=== PATIENT | female | born 1995 | race Caucasian/White ===

== ENCOUNTER 2016-04-12 00:09 | Emergency (ER) | payer SELFPAY ==
[~2016-04-12 00:09] MED LIST: CEPH500 PO; PRENCAP10 PO; UNIS25TA2 PO; ZOFR4TAB PO; [UNRECOGNIZED DRUG - OTHER] PO
[2016-04-12 01:22] LABS: BACTERIA, URINE OCC /hpf; BLOOD, URINE NEG (NEG); COMMENT (UR) CULTURE INDICATED; CULTURE IF INDICATED CULTURE INDICATED; GLUCOSE,URINE NEG (NEG); KETONE, URINE NEG (NEG); MUCUS URINE FEW /lpf (OCC); SQUAMOUS EPITHELIAL CELL URINE 1 /hpf (0-5); URINE COLOR YELLOW (YELLW/STRAW)
[2016-04-12 01:23] LABS: NITRITE,URINE POS (NEG)
[2016-04-12] MEDS ORDERED: PROMETHAZINE INJ 25 MG/ML VIAL IM ONE (01:30)
[2016-04-12] MEDS ORDERED: MEPERIDINE HCL 25 MG/ML VIAL IM ONE (01:30)
[2016-04-12] MEDS ORDERED: MACR100C2 PO (01:37)
--- NOTE | 2016-04-12 01:38 | PD ---
HPI Chief Complaint Abdominal pain Date Seen: Apr 12, 2016 Travel History International Travel<30 Days: No Contact w/Intl Traveler<30Days: No Known Affected Area: No History of Present Illness HPI Patient is a 19 week intrauterine who presents complaining of lower abdominal pain began earlier in the day midday & steadily worsened. Denies bleeding or ruptured membranes. Patient has no care to date. Para: 0 : 4 Allergies-Medications (Allergen,Severity, Reaction): Coded Allergies: No Known Allergies (Unverified , 01/12/16) Home Meds Active Scripts Pyridoxine HCl (B-)25 Mg Loz1 Tab PO Q6HR PRN (NAUSEA) #14 Prov:Deonna Rodriguez MD 01/12/16 Doxylamine Succinate (Sleep) (Unisom)25 Mg Tab0.5 Tab PO ONCE PRN (NAUSEA) #10 Prov:Deonna Rodriguez MD 01/12/16 Ondansetron Hcl (Zofran)4 Mg Tab4 Mg PO Q6HR PRN (NAUSEA) #10 TAB Prov:Deonna Rodriguez MD 01/12/16 Vit W/ Ferrous Fumara ( Multi +Dha)+ Cap1 Cap PO DAILY 30 Days Prov:Deonna Rodriguez MD 01/12/16 Cephalexin Monohydrate (Keflex 500 mg Cap)500 Mg [id number] Mg PO BID #14 CAP Prov:Deonna Rodriguez MD 01/12/16 Review of Systems Gastrointestinal: Abdominal Pain Physical Exam Narrative GENERAL: Well-nourished, well-developed patient. SKIN: Warm and dry. HEAD: Normocephalic and atraumatic. EYES: No scleral icterus. No injection or drainage. ENT: No nasal drainage noted. Mucous membranes pink. Airway patent. NECK: Supple, trachea midline. No JVD. CARDIOVASCULAR: Regular rate and rhythm without murmurs, gallops, or rubs. RESPIRATORY: Breath sounds equal bilaterally. No accessory muscle use. BREASTS: Bilateral exam showed no masses , no retractions, no nipple discharge. ABDOMEN/GI: Abdomen soft, non-tender, bowel sounds present, no rebound, no guarding Gravid to [19-] weeks size Fundal Height: [-at umbilicus] GENITOURINARY: External Genitalia: intact and normal in appearance BUS glands: [-] Cervix: [Closed-] Dilatation: [-0] Effacement: [0-] Station: [-3] Presentation: [-] Membranes: [intact ] Uterine Contractions: [-] FHT's: Category: [-] Baseline: [134-] Reactive: [-] Variability: [-] Decels: [-] EXTREMITIES: No cyanosis or edema. BACK: Nontender without obvious deformity. No CVA tenderness. NEUROLOGICAL: Awake and alert. Motor and sensory grossly within normal limits. Five out of 5 muscle strength in all muscle groups. Normal speech. Data Data Orders Vital Signs (Adult) .ON ADMISSION (04/12/16 00:52) ^ Labor Status (04/12/16 00:52) Urinalysis - C+S If Indicated (04/12/16 00:52) Meperidine Inj (Demerol Inj) (04/12/16 01:30) Promethazine Inj (Phenergan Inj) (04/12/16 01:30) Urine Culture (04/12/16 00:40) Labs Laboratory Tests Test 04/12/16 00:40 Urine Color YELLOW Urine Turbidity HAZY Urine pH 7.0 Urine Specific [place] 1.018 Urine Protein NEG Urine Glucose (UA) NEG Urine Ketones NEG Urine Occult Blood NEG Urine Nitrite POS Urine Bilirubin NEG Urine Urobilinogen LESS THAN 2.0 Urine Leukocyte Esterase SMALL Urine WBC 19 Urine Squamous Epithelial 1 Cells Urine Bacteria OCC Urine Mucus FEW Microscopic Urinalysis Comment CULTURE INDICATED Date/Time Procedure Status Source Growth 04/12/16 00:40 Urine Culture Received Urine Clean Catch Pending [facility] Interpretation(s) Patient's 19 week intrauterine presents with lower abdominal pain today. Denies bleeding or rupture the membranes. She has no care here. Urinalysis positive for UTI with positive nitrites and white cells plan of oral Macrobid 100 twice a day for 7 days. Also probably has some component of round ligament pain associated as well. She was given IM shot for pain Demerol Phenergan. And she is advised to use Tylenol liberally at home or increase her fluids and a heating pad on low across the abdomen also is given information on beginning her care here. Plan Plan the patient to get oral antibiotics for UTI Tylenol for abdominal pain bedrest increase oral fluids and return for any bleeding or leakage of fluid. Diagnosis Diagnosis: Primary Impression: Abdominal pain during in second trimester Additional Impression: UTI (urinary tract infection) during Disposition: 01 DISCHARGE HOME Condition: Stable Scripts Nitrofurantoin Monohydrate Macrocrystals (Macrobid)100 Mg [id number] Mg PO BID #14 CAP Ref 0 Prov:Sam Rodriguez II, MD 04/12/16 Patient Instructions: General Instructions, Labor (ED), Movement (ED), Abdominal Pain in (ED) Departure Forms: Tests/Procedures Sam Rodriguez II, MD Apr 12, 2016 01:37
[2016-04-27] MEDS ORDERED: PREN1CHW7 PO (14:39)
[2016-05-22] MEDS ORDERED: PREN1CHW7 PO (16:14)
[2016-05-22] MEDS ORDERED: ZANT150T2 PO ×2 (16:14→16:15)
[2016-05-24] MEDS ORDERED: FERR325T72 PO (10:55)
[2016-08-23] MEDS ORDERED: ZANT150T2 PO (14:38)
[2016-09-27] MEDS ORDERED: TRI-TAB PO (11:08)
== END 2016-04-12 02:04 | disposition home or self-care (01) ==
LOC: HOBED 00:09
DX: O23.42 Unspecified infection of urinary tract in pregnancy, second trimester (principal); B96.20 Unspecified Escherichia coli [E. coli] as the cause of diseases classified elsewhere; Z3A.19 19 weeks gestation of pregnancy
CPT/HCPCS: 81001; 87077; 87086; 87186; 96372; 99284; J2550

== ENCOUNTER → 2016-04-27 | Outpatient (CLI) | payer SELFPAY ==
[~2016-04-27] MED LIST changes: +ACET1TAB86 PO; +FERR325T72 PO; +Ibuprofen PO; +MACR100C2 PO; +PREN1CHW7 PO; +TRI-TAB PO; +ZANT150T2 PO; +ZOFR8TAB PO
== END ==
LOC: HPND 15:41
PROVIDERS: ATTEND Nurse Practitioner Women's Health
DX: O09.30 Supervision of pregnancy with insufficient antenatal care, unspecified trimester (principal); Z3A.22 22 weeks gestation of pregnancy
CPT/HCPCS: 76805

== ENCOUNTER 2016-05-09 18:55 | Emergency (ER) | payer SELFPAY ==
[~2016-05-09 18:55] MED LIST changes: -ACET1TAB86 PO; -CEPH500 PO; -FERR325T72 PO; -Ibuprofen PO; -MACR100C2 PO; -PRENCAP10 PO; -TRI-TAB PO; -UNIS25TA2 PO; -ZANT150T2 PO; -ZOFR4TAB PO; -ZOFR8TAB PO; -[UNRECOGNIZED DRUG - OTHER] PO
[2016-05-09 19:16] VITALS: BP 116/76; PULSE 75
--- NOTE | 2016-05-09 20:03 | PD ---
HPI Chief Complaint diarrhea and vomiting Date Seen: May 09, 2016 Time Seen: 19:00 Travel History International Travel<30 Days: No Contact w/Intl Traveler<30Days: No Known Affected Area: No History of Present Illness HPI 20 yo female at 24w 4 days by DIANN c/o 3 days of diarrhea, mostly at night. Approx 3 episodes per day. Some nausea at night particularly after eating dinner. Fever 101 on first day of symptoms. Denies abdominal pain. Some right pain on lateral side. Denies contractions. Para: 0 : 3 Last Menstrual Period: May 09, 2016 Miscarriage: 2 History Past Medical History Narrative Medical Denies Obstetric History Obstetric History SAB x 2 Past Surgical History Surgical History: No Previous Surgery Family History Family History: Negative Social History Alcohol Use: No Tobacco Use: No Substance Abuse: No Allergies-Medications (Allergen,Severity, Reaction): Coded Allergies: No Known Allergies (Unverified , 04/27/16) Home Meds Active Scripts Vit W/ Ferric Phospha (Vitafol Gummies 3.33-0.333-34.8 mg)1 Chw Chw1 Tab PO DAILY #90 BOTTLE Ref 3 Prov:Veronika Matt 04/27/16 W/O Vit A W/ Fe Carbo (Prenate Mini 18-0.6-0.4-350 mg)1 Cap Cap Sample #2 Prov:Veronika Matt 04/27/16 Review of Systems Except as stated in HPI: all other systems reviewed are Neg General / Constitutional: Fever Gastrointestinal: Nausea, Diarrhea Physical Exam Narrative GENERAL: Well-nourished, well-developed patient. SKIN: Warm and dry. HEAD: Normocephalic and atraumatic. EYES: No scleral icterus. No injection or drainage. ENT: No nasal drainage noted. Mucous membranes pink. Airway patent. NECK: Supple, trachea midline. No JVD. CARDIOVASCULAR: Regular rate and rhythm without murmurs, gallops, or rubs. RESPIRATORY: Breath sounds equal bilaterally. No accessory muscle use. BREASTS: Bilateral exam showed no masses , no retractions, no nipple discharge. ABDOMEN/GI: Abdomen soft, non-tender, bowel sounds present, no rebound, no guarding Gravid to [-] 24 weeks size Fundal Height: [-] GENITOURINARY: External Genitalia: intact and normal in appearance BUS glands: [-] Cervix: [-] Dilatation: [-] Effacement: [-] Station: [-] Presentation: [-] Membranes: [intact or ruptured] Uterine Contractions: [-] no contractions seen on toco FHT's: Category: [-] 1 Baseline: [-] 130 Reactive: [-] moderate Variability: [-] moderate Decels: [-] absent EXTREMITIES: No cyanosis or edema. BACK: Nontender without obvious deformity. No CVA tenderness. NEUROLOGICAL: Awake and alert. Motor and sensory grossly within normal limits. Five out of 5 muscle strength in all muscle groups. Normal speech. Data Data Orders Vital Signs (Adult) .ON ADMISSION (05/09/16 19:36) ^ Labor Status (05/09/16 19:36) Urinalysis - C+S If Indicated (05/09/16 19:36) Cbc No Diff, Includes Plts (05/09/16 19:36) Comprehensive Metabolic Panel (05/09/16 19:36) Labs Laboratory Tests Test 05/09/16 05/09/16 19:30 19:40 Urine Color YELLOW Urine Turbidity CLEAR Urine pH 6.0 Urine Specific [place] 1.011 Urine Protein NEG mg/dL Urine Glucose (UA) NEG mg/dL Urine Ketones NEG mg/dL Urine Occult Blood NEG Urine Nitrite NEG Urine Bilirubin NEG Urine Urobilinogen LESS THAN 2.0 MG/DL Urine Leukocyte Esterase NEG Urine WBC 3 /hpf Urine Squamous Epithelial 1 /hpf Cells Urine Bacteria OCC /hpf Urine Mucus FEW /lpf Microscopic Urinalysis Comment CULT NOT INDICATED White Blood Count 10.3 TH/MM3 Red Blood Count 3.30 MIL/MM3 Hemoglobin 9.8 GM/DL Hematocrit 28.5 % Mean Corpuscular Volume 86.4 FL Mean Corpuscular Hemoglobin 29.6 PG Mean Corpuscular Hemoglobin 34.2 % Concent Red Cell Distribution Width 13.5 % Platelet Count 222 TH/MM3 Mean Platelet Volume 9.5 FL Sodium Level 139 MEQ/L Potassium Level 4.1 MEQ/L Chloride Level 106 MEQ/L Carbon Dioxide Level 24.2 MEQ/L Anion Gap 9 MEQ/L Blood Urea Nitrogen 5 MG/DL Creatinine 0.63 MG/DL Estimat Glomerular Filtration 120 ML/MIN Rate Random Glucose 69 MG/DL Calcium Level 8.3 MG/DL Total Bilirubin 0.3 MG/DL Aspartate Amino Transf 9 U/L (AST/SGOT) Alanine Aminotransferase 13 U/L (ALT/SGPT) Alkaline Phosphatase 44 U/L Total Protein 6.5 GM/DL Albumin 2.8 GM/DL MDM Plan Discussed increased fluid intake Normal CBC/BMP/UA - No signs of bacterial infection. Most likely mild viral gastroenteritis Over the counter iron supplements daily Diagnosis Diagnosis: Primary Impression: 24 weeks gestation of Additional Impressions: Viral gastroenteritis Anemia affecting Disposition: 01 DISCHARGE HOME Meghan Mak MD May 09, 2016 20:03
[2016-05-09 20:57] LABS: HEMATOCRIT 28.5 % (35.0-46.0); MEAN CELL VOLUME 86.4 FL (80.0-100.0); MEAN CORPUSCULAR HEMOGLOBIN 29.6 PG (27.0-34.0); MEAN CORPUSCULAR HGB CONC 34.2 % (32.0-36.0); PLATELET COUNT 222 TH/MM3 (150-450); RED CELL DISTRIBUTION WIDTH 13.5 % (11.6-17.2); REVIEW FLAG FINAL; WHITE BLOOD COUNT 10.3 TH/MM3 (4.0-11.0)
[2016-05-09 21:02] LABS: BACTERIA, URINE OCC /hpf; BLOOD, URINE NEG (NEG); COMMENT (UR) CULT NOT INDICATED; CULTURE IF INDICATED CULT NOT INDICATED; GLUCOSE,URINE NEG (NEG); KETONE, URINE NEG (NEG); MUCUS URINE FEW /lpf (OCC); NITRITE,URINE NEG (NEG); SQUAMOUS EPITHELIAL CELL URINE 1 /hpf (0-5); URINE COLOR YELLOW (YELLW/STRAW)
[2016-05-09 21:13] LABS: ALKALINE PHOSPHATASE 44 U/L (45-117); ALT (GPT) 13 U/L (9-42); ANION GAP 9 MEQ/L (5-15); AST (GOT) 9 U/L (16-38); BICARBONATE 24.2 MEQ/L (21.0-32.0); BLOOD UREA NITROGEN 5 MG/DL (7-18); CHLORIDE 106 MEQ/L (98-107); GLOMERULAR FILTRATION RATE 120 ML/MIN (>89); POTASSIUM 4.1 MEQ/L (3.5-5.1); SODIUM (NA) 139 MEQ/L (136-145); TOTAL BILIRUBIN ADULT 0.3 MG/DL (0.2-1.0)
[2016-05-22] MEDS ORDERED: ZANT150T2 PO ×2 (16:14→16:15)
[2016-05-22] MEDS ORDERED: PREN1CHW7 PO (16:14)
[2016-05-24] MEDS ORDERED: FERR325T72 PO (10:55)
[2016-08-23] MEDS ORDERED: ZANT150T2 PO (14:38)
[2016-09-27] MEDS ORDERED: TRI-TAB PO (11:08)
== END 2016-05-09 21:29 | disposition home or self-care (01) ==
LOC: HOBED 18:55
DX: O99.612 Diseases of the digestive system complicating pregnancy, second trimester (principal); O98.512 Other viral diseases complicating pregnancy, second trimester; A08.4 Viral intestinal infection, unspecified; O99.012 Anemia complicating pregnancy, second trimester; Z3A.24 24 weeks gestation of pregnancy
CPT/HCPCS: 36415; 80053; 81001; 85027

== ENCOUNTER 2016-05-19 15:25 | Emergency (ER) | payer MEDICAID ==
[2016-05-19] MEDS ORDERED: SODIUM CHLOR 0.9% 1000 ML INJ 1,000 ML IV SCH (15:50)
[2016-05-19 16:00] VITALS: TEMP 98.7
[2016-05-19] MEDS ORDERED: ONDANSETRON HCL 4 MG/2 ML VIAL IV ONE (16:00)
--- NOTE | 2016-05-19 16:01 | PD ---
HPI Chief Complaint Nausea and vomiting Date Seen: May 19, 2016 Time Seen: 15:53 (Luis Leon MD R2) Travel History International Travel<30 Days: No Contact w/Intl Traveler<30Days: No Known Affected Area: No (Luis Leon MD R2) History of Present Illness HPI 20-year-old at 26.0 presents to OB triage for the third time in 1 month for nausea and vomiting of . Patient has had intermittent episodes where she has nausea and vomiting. She started developing nausea and vomiting last night which progressed to this morning. She states this morning she had toast around 8:30 AM and has been nonbloody vomiting every hour since that time. She does not think the toast caused her to be vomiting. She also has been having diarrhea 3 today. Nonbloody. She also has a mild nonproductive cough and right ear drainage for one day. When the patient was here on 05/09/16 , CBC, urinalysis, and BMP were reassuring. CBC did reveal anemia which she has been treated with iron since that time. She did complain of fevers last night and now she complains of chills. No vaginal bleeding. No loss of fluid. She feels the baby move as normal. Para: 0 : 3 (Luis Leon MD R2) History Past Medical History Narrative Medical Anemia-on iron Medical History: Denies Significant Hx (Luis Leon MD R2) Obstetric History Obstetric History 2 spontaneous abortions prior to 3 months. (Luis Leon MD R2) Past Surgical History Surgical History: No Previous Surgery (Luis Leon MD R2) Family History Family History: Negative (Luis Leon MD R2) Social History Alcohol Use: No Tobacco Use: No Substance Abuse: No (Luis Leon MD R2) Allergies-Medications (Allergen,Severity, Reaction): Coded Allergies: No Known Allergies (Unverified , 05/19/16) Home Meds Active Scripts Ondansetron (Zofran)8 Mg Tab8 Mg PO TID #90 TAB Ref 0 Prov:Luis Leon MD 05/19/16 Ranitidine (Zantac)150 Mg [id number] Mg PO BID #30 TAB Ref 0 Prov:Luis Leon MD 05/19/16 Vit W/ Ferric Phospha (Vitafol Gummies 3.33-0.333-34.8 mg)1 Chw Chw1 Tab PO DAILY #90 BOTTLE Ref 3 Prov:VernellVeronika Destini NASEEM 04/27/16 W/O Vit A W/ Fe Carbo (Prenate Mini 18-0.6-0.4-350 mg)1 Cap Cap Sample #2 Prov:VernellVeronika B. CASE SUPERVISOR 04/27/16 Review of Systems General / Constitutional: Fever, Chills HENT: Headaches (better with Tylenol) (Luis Leon MD R2) Physical Exam Narrative GENERAL: Well-nourished, well-developed patient. SKIN: Warm and dry. HEAD: Normocephalic and atraumatic. EYES: No scleral icterus. No injection or drainage. ENT: No nasal drainage noted. Mucous membranes pink. Airway patent. NECK: Supple, trachea midline. No JVD. CARDIOVASCULAR: Regular rate and rhythm without murmurs, gallops, or rubs. RESPIRATORY: Breath sounds equal bilaterally. No accessory muscle use. ABDOMEN/GI: Abdomen soft, non-tender, bowel sounds present, no rebound, no guarding FHT's: Category: [-] Baseline: [-] Reactive: [-] Variability: [-] Decels: [-] EXTREMITIES: No cyanosis or edema. BACK: Nontender without obvious deformity. No CVA tenderness. NEUROLOGICAL: Awake and alert. Motor and sensory grossly within normal limits. Five out of 5 muscle strength in all muscle groups. Normal speech. (Luis Leon MD R2) Data Data Vital Signs Reviewed: Yes Orders Vital Signs (Adult) .ON ADMISSION (05/19/16 15:50) ^ Labor Status (05/19/16 15:50) (Luis Leon MD R2) MDM Medical Record Reviewed: Yes Interpretation(s) 20-year-old presents with nausea and vomiting [address] the patient on the monitor 2. Nausea and vomiting-Suspect gastroenteritis versus nausea and vomiting of -Place IV, provide fluid and Zofran. -Previous labs reviewed on 05/09 and are reassuring. Narrative Course / MDM After 2 L of fluid and Zofran, the patient feels back to her normal self. Her nausea has improved after Zofran. She has not had any vomiting. We'll plan to discharge the patient home with ericntac and zofran. Encourage follow-up with her OB provider within the next week. (Luis Leon MD R2) Attending Attestation Patient seen and evaluated with resident under direct supervision, agree with assessment and plan. (Jason Solorzano MD) Diagnosis Diagnosis: Primary Impression: Nausea and vomiting during Disposition: 01 DISCHARGE HOME Condition: Stable Scripts Ondansetron (Zofran)8 Mg Tab8 Mg PO TID #90 TAB Ref 0 Prov:Luis Leon MD R2 05/19/16 Ranitidine (Zantac)150 Mg [id number] Mg PO BID #30 TAB Ref 0 Prov:Luis Leon MD R2 05/19/16 Luis Leon MD R2 May 19, 2016 16:01 Jason Solorzano MD May 19, 2016 17:45
[2016-05-19 16:27] LABS: BLOOD, URINE NEG (NEG); COMMENT (UR) CULT NOT INDICATED; CULTURE IF INDICATED CULT NOT INDICATED; GLUCOSE,URINE NEG (NEG); KETONE, URINE NEG (NEG); NITRITE,URINE NEG (NEG); SQUAMOUS EPITHELIAL CELL URINE 1 /hpf (0-5); URINE COLOR LIGHT-YELLOW (YELLW/STRAW)
[2016-05-19 16:51] VITALS: BP 120/81; PULSE 71
[2016-05-19 16:53] VITALS: RESP 18
[2016-05-19] MEDS ORDERED: LACTATED RINGER'S 1000 ML INJ 1,000 ML IV ONE (17:15)
[2016-05-19] MEDS ORDERED: ZANT150T2 PO (17:23)
[2016-05-19] MEDS ORDERED: ZOFR8TAB PO (17:23)
[2016-05-19 18:00] VITALS: RESP 18
[2016-05-19 18:11] VITALS: BP 115/75; PULSE 74
[2016-05-22] MEDS ORDERED: ZANT150T2 PO ×2 (16:14→16:15)
[2016-05-22] MEDS ORDERED: PREN1CHW7 PO (16:14)
[2016-05-24] MEDS ORDERED: FERR325T72 PO (10:55)
[2016-08-23] MEDS ORDERED: ZANT150T2 PO (14:38)
[2016-09-27] MEDS ORDERED: TRI-TAB PO (11:08)
== END 2016-05-19 18:19 | disposition home or self-care (01) ==
LOC: HOBED 15:25
DX: O26.892 Other specified pregnancy related conditions, second trimester (principal); R11.2 Nausea with vomiting, unspecified; R19.7 Diarrhea, unspecified; H92.11 Otorrhea, right ear; R05 Cough; D64.9 Anemia, unspecified
CPT/HCPCS: 81001; 99284; J2405; J7030; J7120

== ENCOUNTER → 2016-05-23 | Outpatient (CLI) | payer MEDICAID, OTHER ==
[~2016-05-23] MED LIST changes: +ACET1TAB86 PO; +FERR325T72 PO; +Ibuprofen PO; +TRI-TAB PO; +ZANT150T2 PO; +ZOFR8TAB PO
== END ==
LOC: HPND 13:15
PROVIDERS: ATTEND Obstetrics & Gynecology
DX: O35.1XX0 Maternal care for (suspected) chromosomal abnormality in fetus, not applicable or unspecified (principal); O09.32 Supervision of pregnancy with insufficient antenatal care, second trimester
CPT/HCPCS: 76811

== ENCOUNTER → 2016-06-19 | Outpatient (CLI) | payer MEDICAID | LOC: HPND 11:00 | PROVIDERS: ATTEND Obstetrics & Gynecology | DX: O35.1XX0 Maternal care for (suspected) chromosomal abnormality in fetus, not applicable or unspecified (principal); Z3A.00 Weeks of gestation of pregnancy not specified | CPT/HCPCS: 76816 ==

== ENCOUNTER 2016-06-30 21:59 | Emergency (ER) | payer MEDICAID ==
[~2016-06-30 21:59] MED LIST changes: -ACET1TAB86 PO; -Ibuprofen PO; -TRI-TAB PO; -ZANT150T2 PO; -ZOFR8TAB PO
[2016-06-30] MEDS ORDERED: LACTATED RINGER'S 1000 ML INJ 1,000 ML IV ONE (22:45)
--- NOTE | 2016-06-30 22:54 | PD ---
HPI Chief Complaint Contractions for 1 hour Date Seen: Jun 30, 2016 Time Seen: 22:51 Travel History International Travel<30 Days: No Contact w/Intl Traveler<30Days: No Known Affected Area: No History of Present Illness HPI 20-year-old white female who is at 32 weeks gestation comes in complaining of intermittent abdominal pain with contractions for the past 1 hour that began at work. Patient did not feel well at work and took a break thereafter started having contractions. Denies vaginal bleeding or discharge. Good movement is noted Para: 0 : 1 History Past Medical History Narrative Medical Anemia this Medical History: Denies Significant Hx Obstetric History Obstetric History SAB 2 Past Surgical History Surgical History: No Previous Surgery Family History Family History: Negative Social History Alcohol Use: No Tobacco Use: No Substance Abuse: No Allergies-Medications (Allergen,Severity, Reaction): Coded Allergies: No Known Allergies (Unverified , 06/19/16) Home Meds Active Scripts Ferrous Gluconate 325 Mg [id number] Mg PO DAILY #30 TAB Ref 3 Prov:Cherri Gilmore CNMP 05/24/16 Vit W/ Ferric Phospha (Vitafol Gummies 3.33-0.333-34.8 mg)1 Chw Chw1 Tab PO DAILY #90 BOTTLE Ref 3 Prov:Veronika Matt 05/22/16 W/O Vit A W/ Fe Carbo (Prenate Mini 18-0.6-0.4-350 mg)1 Cap Cap Sample #2 Prov:Veronika Matt 04/27/16 Review of Systems Except as stated in HPI: all other systems reviewed are Neg Physical Exam Narrative GENERAL: Well-nourished, well-developed patient. SKIN: Warm and dry. HEAD: Normocephalic and atraumatic. EYES: No scleral icterus. No injection or drainage. ENT: No nasal drainage noted. Mucous membranes pink. Airway patent. NECK: Supple, trachea midline. No JVD. CARDIOVASCULAR: Regular rate and rhythm without murmurs, gallops, or rubs. RESPIRATORY: Breath sounds equal bilaterally. No accessory muscle use. BREASTS: Bilateral exam showed no masses , no retractions, no nipple discharge. ABDOMEN/GI: Abdomen soft, non-tender, bowel sounds present, no rebound, no guarding Gravid to [-] weeks size Fundal Height: [32-] GENITOURINARY: External Genitalia: intact and normal in appearance BUS glands: [Normal-] Cervix: [Mid position-] Dilatation: [-Closed] Effacement: [-50] Station: [-3] Presentation: [-Vertex] Membranes: [intact ] Uterine Contractions: [-Irregular every 3-5 minutes] FHT's: Category: [1-] Baseline: 140 Reactive: Moderate Variability: Moderate Decels: Absent EXTREMITIES: No cyanosis or edema. BACK: Nontender without obvious deformity. No CVA tenderness. NEUROLOGICAL: Awake and alert. Motor and sensory grossly within normal limits. Five out of 5 muscle strength in all muscle groups. Normal speech. Data Data Orders Vital Signs (Adult) .ON ADMISSION (06/30/16 22:43) ^ Labor Status (06/30/16 22:43) Urinalysis - C+S If Indicated (06/30/16 22:43) ^ Hydration (06/30/16 22:43) Lactated Ringer's 1000 Ml Inj (Lr 1000 M (06/30/16 22:45) Labs Laboratory Tests Test 06/30/16 22:55 Urine Color YELLOW Urine Turbidity CLEAR Urine pH 7.0 Urine Specific [place] 1.007 Urine Protein NEG mg/dL Urine Glucose (UA) NEG mg/dL Urine Ketones NEG mg/dL Urine Occult Blood NEG Urine Nitrite NEG Urine Bilirubin NEG Urine Urobilinogen LESS THAN 2.0 MG/DL Urine Leukocyte Esterase NEG Urine RBC LESS THAN 1 /hpf Urine WBC 2 /hpf Urine Squamous Epithelial 1 /hpf Cells Urine Mucus FEW /lpf Microscopic Urinalysis Comment CULT NOT INDICATED Fibronectin NEGATIVE MDM Plan 32 weeks, negative FFN Contractions much improved with IV hydration Discharge home with decreased activity this weekend with pelvic rest Follow up next week CFW Diagnosis Diagnosis: Primary Impression: 32 weeks gestation of Additional Impression: False labor before 37 completed weeks of gestation Disposition: 01 DISCHARGE HOME Meghan Mak MD Jun 30, 2016 22:54
[2016-06-30 23:23] LABS: BLOOD, URINE NEG (NEG); COMMENT (UR) CULT NOT INDICATED; CULTURE IF INDICATED CULT NOT INDICATED; GLUCOSE,URINE NEG (NEG); KETONE, URINE NEG (NEG); MUCUS URINE FEW /lpf (OCC); NITRITE,URINE NEG (NEG); SQUAMOUS EPITHELIAL CELL URINE 1 /hpf (0-5); URINE COLOR YELLOW (YELLW/STRAW)
[2016-08-23] MEDS ORDERED: ZANT150T2 PO (14:38)
[2016-09-27] MEDS ORDERED: TRI-TAB PO (11:08)
== END 2016-07-01 00:10 | disposition home or self-care (01) ==
LOC: HOBED 21:59
DX: D64.9 Anemia, unspecified (principal); O47.03 False labor before 37 completed weeks of gestation, third trimester; Z3A.32 32 weeks gestation of pregnancy
CPT/HCPCS: 81001; 82731; 96360; 99284; J7120

== ENCOUNTER 2016-07-18 05:08 | Emergency (ER) | payer MEDICAID ==
--- NOTE | 2016-07-18 05:59 | PD ---
HPI Chief Complaint Lower abdominal pain Date Seen: Jul 18, 2016 Travel History International Travel<30 Days: No Contact w/Intl Traveler<30Days: No Known Affected Area: No History of Present Illness HPI at 34w 4d, DIANN 08-25-16, presents with c/o lower abdominal pain. Reports pain as cramping and intermittent. Reports pain beginning a few hours prior to arrival. Denies LOF/VB. Reports good FM. Denies problems this . Denies urinary problems. Para: 0 : 3 History Past Medical History Medical History: Denies Significant Hx Past Surgical History Surgical History: No Previous Surgery Family History Family History: Negative Social History Alcohol Use: No Tobacco Use: No Substance Abuse: No Allergies-Medications (Allergen,Severity, Reaction): Coded Allergies: No Known Allergies (Unverified , 07/04/16) Home Meds Active Scripts Ferrous Gluconate 325 Mg [id number] Mg PO DAILY #30 TAB Ref 3 Prov:Cherri Gilmore CNM [facility] 05/24/16 Vit W/ Ferric Phospha (Vitafol Gummies 3.33-0.333-34.8 mg)1 Chw Chw1 Tab PO DAILY #90 BOTTLE Ref 3 Prov:Veronika Matt [facility] 05/22/16 W/O Vit A W/ Fe Carbo (Prenate Mini 18-0.6-0.4-350 mg)1 Cap Cap Sample #2 Prov:Veronika Matt [facility] 04/27/16 Physical Exam AFVSS Narrative GENERAL: Well-nourished, well-developed patient. SKIN: Warm and dry. HEAD: Normocephalic and atraumatic. EYES: No scleral icterus. No injection or drainage. ENT: No nasal drainage noted. Mucous membranes pink. Airway patent. NECK: Supple, trachea midline. No JVD. CARDIOVASCULAR: Regular rate and rhythm without murmurs, gallops, or rubs. RESPIRATORY: Breath sounds equal bilaterally. No accessory muscle use. BREASTS: Bilateral exam showed no masses , no retractions, no nipple discharge. ABDOMEN/GI: Abdomen soft, non-tender, bowel sounds present, no rebound, no guarding Gravid to [-] weeks size Fundal Height: [-] GENITOURINARY: External Genitalia: intact and normal in appearance BUS glands: [-] Cervix: [-] Dilatation: [0] Effacement: [0] Station: [-3] Presentation: [-] Membranes: [intact or ruptured] Uterine Contractions: [irregular contractions] FHT's: Category: [1] Baseline: [130s] Reactive: [reactive] Variability: [moderate] Decels: [none] EXTREMITIES: No cyanosis or edema. BACK: Nontender without obvious deformity. No CVA tenderness. NEUROLOGICAL: Awake and alert. Motor and sensory grossly within normal limits. Five out of 5 muscle strength in all muscle groups. Normal speech. Data Data Labs Laboratory Tests Test 07/18/16 05:37 Urine Color LIGHT-YELLOW Urine Turbidity HAZY Urine pH 7.0 Urine Specific [place] 1.007 Urine Protein 100 mg/dL Urine Glucose (UA) NEG mg/dL Urine Ketones NEG mg/dL Urine Occult Blood MOD Urine Nitrite NEG Urine Bilirubin NEG Urine Urobilinogen LESS THAN 2.0 MG/DL Urine Leukocyte Esterase MOD Urine RBC 54 /hpf Urine WBC 56 /hpf Urine WBC Clumps RARE Urine Squamous Epithelial 1 /hpf Cells Urine Transitional Epithelial <1 /hpf Cells Urine Bacteria MOD /hpf Urine Hyaline Casts 2 /lpf Urine Mucus FEW /lpf Microscopic Urinalysis Comment CULTURE INDICATED MDM Narrative Course / MDM at 34 weeks, irregular contractions. Plan Will begin IVF. Will monitor and recheck. D/c home if no cervical change and contractions decrease. Will administer Rocephin 1gm IV. Patient instructed to f/u on culture results. Hydration encouraged. Patient to keep scheduled appt later today. Labor precautions given. All questions answered. Diagnosis Diagnosis: Primary Impression: 34 weeks gestation of Additional Impressions: False labor before 37 completed weeks of gestation during in third trimester, antepartum Irregular contractions Disposition: DISCHARGE HOME Patient Instructions: General Instructions Departure Forms: Tests/Procedures Alexia Mclean MD Jul 18, 2016 05:59
[2016-07-18] MEDS ORDERED: LACTATED RINGER'S 1000 ML INJ 500 ML IV ONE (06:00)
[2016-07-18] MEDS: LACTATED RINGER'S 1000 ML INJ 1,000 ML IV SCH ×3 (06:00→07:56)
[2016-07-18] MEDS ORDERED: LACTATED RINGER'S 1,000 ML BAG IV ONE (06:04)
[2016-07-18 07:05] LABS: BACTERIA, URINE MOD /hpf; BLOOD, URINE MOD (NEG); GLUCOSE,URINE NEG (NEG); HYALINE CAST, URINE 2 /lpf (RARE); KETONE, URINE NEG (NEG); MUCUS URINE FEW /lpf (OCC); NITRITE,URINE NEG (NEG); SQUAMOUS EPITHELIAL CELL URINE 1 /hpf (0-5); TRANSITIONAL EPI CELLS, URINE <1 /hpf; URINE COLOR LIGHT-YELLOW (YELLW/STRAW)
[2016-07-18 07:12] LABS: COMMENT (UR) CULTURE INDICATED; CULTURE IF INDICATED CULTURE INDICATED
[2016-07-18] MEDS ORDERED: cefTRIAXone 1,000 MG/NS 100 ML IV ONE ×2 (07:30)
[2016-08-23] MEDS ORDERED: ZANT150T2 PO (14:38)
[2016-09-27] MEDS ORDERED: TRI-TAB PO (11:08)
== END 2016-07-18 07:57 | disposition home or self-care (01) ==
LOC: HOBED 05:08
DX: O47.03 False labor before 37 completed weeks of gestation, third trimester (principal); O62.9 Abnormality of forces of labor, unspecified; Z3A.34 34 weeks gestation of pregnancy
CPT/HCPCS: 59025; 81001; 87086; 96360; 96361; 99284; J0696; J7120

== ENCOUNTER 2016-08-01 14:16 | Emergency (ER) | payer MEDICAID ==
--- NOTE | 2016-08-01 15:28 | PD ---
HPI Chief Complaint leaking of fluids Date Seen: Aug 01, 2016 Time Seen: 15:07 Travel History International Travel<30 Days: No Contact w/Intl Traveler<30Days: No History of Present Illness HPI 20 y/o female at 36/4 weeks presents for leaking of fluids. States late last night, she noticed that she was having some small fluid leakage , no gush of fluids. Endorses some contractions at that time as well, which is new for her. Stated they occurred every 5-10 minutes. Endorses movement. Denies vaginal bleeding. Endorses headache last night as well, but doing fine now. Denies any change in vision, new edema. [facility] with [facility] Para: 0 : 4 Miscarriage: 3 History Past Medical History Narrative Medical History of iron deficiency anemia Obstetric History Obstetric History 3 miscarriages Past Surgical History Surgical History: No Previous Surgery Family History Family History: Negative Social History Alcohol Use: No Tobacco Use: No Substance Abuse: No Allergies-Medications (Allergen,Severity, Reaction): Coded Allergies: No Known Allergies (Unverified , 07/04/16) Home Meds Active Scripts Ferrous Gluconate 325 Mg [id number] Mg PO DAILY #30 TAB Ref 3 Prov:Cherri Gilmore CNMP 05/24/16 Vit W/ Ferric Phospha (Vitafol Gummies 3.33-0.333-34.8 mg)1 Chw Chw1 Tab PO DAILY #90 BOTTLE Ref 3 Prov:Veronika Matt 05/22/16 W/O Vit A W/ Fe Carbo (Prenate Mini 18-0.6-0.4-350 mg)1 Cap Cap Sample #2 Prov:Veronika Matt 04/27/16 Review of Systems General / Constitutional: Weight Gain, No: Fever, Chills Eyes: No: Blurred Vision HENT: Headaches Cardiovascular: No: Chest Pain or Discomfort, Palpitations Respiratory: No: Cough, Short of Breath Gastrointestinal: No: Nausea, Vomiting, Diarrhea Genitourinary: Pelvic Pain, No: Frequency, Dysuria, Discharge, Vaginal Bleeding Skin: No Rash, No Itching Neurologic: No: Weakness, Dizziness Psychiatric: No: Anxiety, Depression Physical Exam Narrative GENERAL: Well-nourished, well-developed patient. SKIN: Warm and dry. HEAD: Normocephalic and atraumatic. EYES: No scleral icterus. No injection or drainage. ENT: No nasal drainage noted. Mucous membranes pink. Airway patent. NECK: Supple, trachea midline. No JVD. CARDIOVASCULAR: Regular rate and rhythm without murmurs, gallops, or rubs. RESPIRATORY: Breath sounds equal bilaterally. No accessory muscle use. ABDOMEN/GI: Abdomen soft, non-tender, bowel sounds present, no rebound, no guarding Gravid to 36 weeks size GENITOURINARY: External Genitalia: intact and normal in appearance Dilatation: 0 Effacement: 50 Station: -3 Presentation: vertex Membranes: intact Uterine Contractions: occasional FHT's: Category: 1 Baseline: 135 Reactive: yes Variability: moderate Decels: none EXTREMITIES: No cyanosis or edema. BACK: Nontender without obvious deformity. No CVA tenderness. NEUROLOGICAL: Awake and alert. Motor and sensory grossly within normal limits. Five out of 5 muscle strength in all muscle groups. Normal speech. Data Data Vital Signs Reviewed: Yes [facility] Medical Record Reviewed: Yes Interpretation(s) 20 y/o at 36/4 weeks presents with leakage of fluids. Amnisure negative. Cervical exam: 0/50/-3 Category 1 FHT with occasional contractions, not in labor Vitals stable -Discharge home, as patient having vandana santiago contractions, no signs of labor -Drink plenty of fluids -Follow-up with OB -Return to ED if consistent contractions, vaginal bleeding, gush of fluids. Diagnosis Diagnosis: Primary Impression: False labor before 37 completed weeks of gestation during in third trimester, antepartum Additional Impression: No leakage of amniotic fluid into vagina Disposition: 01 DISCHARGE HOME Condition: Stable Patient Instructions: General Instructions, Early Labor Signs (ED), Labor (ED) Zain Platt MD R1 Aug 01, 2016 15:28
--- NOTE | 2016-08-01 15:32 | PD ---
History of Present Illness Date Seen: Aug 01, 2016 History of Present Illness 20-year-old white female at 36 weeks who presents thinking she may have been leaking some amniotic fluid. Denies bleeding or uterine contractions. heart rate tracing is reactive and only met uterine irritability noted. Patient's amnio sure was negative she's had no leakage on she's been here ., [facility]. Patient's vaginal exam cervix is closed and posterior. Plan to discharge the patient home to follow-up with her OB provider, evaluation and plan related by the family practice resident and agree with this assessment Sam Rodriguez II, MD Aug 01, 2016 15:32
[2016-08-23] MEDS ORDERED: ZANT150T2 PO (14:38)
[2016-09-27] MEDS ORDERED: TRI-TAB PO (11:08)
== END 2016-08-01 15:35 | disposition home or self-care (01) ==
LOC: HOBED 14:16
DX: O47.03 False labor before 37 completed weeks of gestation, third trimester (principal); Z3A.36 36 weeks gestation of pregnancy
CPT/HCPCS: 59025; 84112

== ENCOUNTER 2016-08-14 13:49 | Emergency (ER) | payer MEDICAID ==
[2016-08-14 14:16] VITALS: BP 107/88; PULSE 91
--- NOTE | 2016-08-14 14:54 | PD ---
HPI Chief Complaint leakage of fluids Date Seen: August 14, 2016 Time Seen: 14:54 Travel History International Travel<30 Days: No Contact w/Intl Traveler<30Days: No History of Present Illness HPI 20 y/o at 38/3 weeks presents for leakage of fluids. Pt states that early this morning around 4 am, there was a slow leak of fluids. Said she did experience a heavier flow, then back to a leak. No vaginal bleeding. Occasional contractions. Endorses movement. Denies any other symptoms. No problems with this . No dysuria. No chest pain, SOB, leg pain, edema. No headache, changes in vision. [facility] with [facility]. Para: 0 : 4 Miscarriage: 3 History Past Medical History Medical History: Denies Significant Hx Obstetric History Obstetric History -3 miscarriages Past Surgical History Surgical History: No Previous Surgery Family History Family History: Negative Social History Alcohol Use: No Tobacco Use: No Substance Abuse: No Allergies-Medications (Allergen,Severity, Reaction): Coded Allergies: No Known Allergies (Unverified , 08/09/16) Home Meds Active Scripts Ferrous Gluconate 325 Mg [id number] Mg PO DAILY #30 TAB Ref 3 Prov:Cherri Gilmore CNM [facility] 05/24/16 Vit W/ Ferric Phospha (Vitafol Gummies 3.33-0.333-34.8 mg)1 Chw Chw1 Tab PO DAILY #90 BOTTLE Ref 3 Prov:Veronika Matt 05/22/16 W/O Vit A W/ Fe Carbo (Prenate Mini 18-0.6-0.4-350 mg)1 Cap Cap Sample #2 Prov:Veronika Matt 04/27/16 Review of Systems General / Constitutional: Weight Gain, No: Fever, Weight Loss, Chills Eyes: No: Blurred Vision, Visual changes HENT: No: Headaches, Vertigo Cardiovascular: No: Irregular Rhythm, Chest Pain or Discomfort Respiratory: No: Cough, Short of Breath Gastrointestinal: No: Nausea, Vomiting, Diarrhea, Abdominal Pain Genitourinary: No: Urgency, Dysuria, Pelvic Pain, Discharge, Vaginal Bleeding Musculoskeletal: No: Limited ROM, Weakness Skin: No Rash, No Itching Neurologic: No: Weakness, Dizziness Psychiatric: No: Anxiety, Depression Physical Exam Narrative GENERAL: Well-nourished, well-developed patient. SKIN: Warm and dry. HEAD: Normocephalic and atraumatic. EYES: No scleral icterus. No injection or drainage. ENT: No nasal drainage noted. Mucous membranes pink. Airway patent. NECK: Supple, trachea midline. No JVD. CARDIOVASCULAR: Regular rate and rhythm without murmurs, gallops, or rubs. RESPIRATORY: Breath sounds equal bilaterally. No accessory muscle use. ABDOMEN/GI: Abdomen soft, non-tender, bowel sounds present, no rebound, no guarding Gravid to 38 weeks size GENITOURINARY: External Genitalia: intact and normal in appearance Cervix: posterior Dilatation: 0 Effacement: 0 Station: -2 Presentation: vertex Membranes: intact Uterine Contractions: occasional FHT's: Category: 1 Baseline: 130 Reactive: yes Variability: moderate Decels: none EXTREMITIES: No cyanosis or edema. BACK: Nontender without obvious deformity. No CVA tenderness. NEUROLOGICAL: Awake and alert. Motor and sensory grossly within normal limits. Five out of 5 muscle strength in all muscle groups. Normal speech. Data Data Vital Signs Reviewed: Yes [facility] Medical Record Reviewed: Yes Interpretation(s) 20 y/o at 38/3 weeks presents with leakage of fluids. Amnisure negative. Category 1 FHT. Cervical exam 0/0/-2 - Discharge home - Amnisure negative and cervix is closed, no signs of labor at this time. - F/u with [facility] - RTC if gush of fluids, vaginal bleeding, frequent contractions. Diagnosis Diagnosis: Primary Impression: No leakage of amniotic fluid into vagina Additional Impression: 38 weeks gestation of Disposition: 01 DISCHARGE HOME Condition: Stable Patient Instructions: General Instructions Zain Platt MD R1 August 14, 2016 14:54
--- NOTE | 2016-08-14 15:15 | PD ---
History of Present Illness Date Seen: August 14, 2016 History of Present Illness This patient is 20-year-old white female at 38 weeks who had leakage of fluid home. The fluids clear and minimal. The here on OB ED the amnio sure is negative, heart rate tracing is reactive and there is only an irregular contraction. Patient's cervix is closed fingertip posterior. To discharge home to bedrest return for any worsening symptoms bleeding leakage etc. otherwise she'll follow-[facility] with the [facility] Sam Rodriguez II, MD August 14, 2016 15:15
[2016-08-23] MEDS ORDERED: ZANT150T2 PO (14:38)
[2016-09-27] MEDS ORDERED: TRI-TAB PO (11:08)
== END 2016-08-14 15:21 | disposition home or self-care (01) ==
LOC: HOBED 13:49
DX: O26.893 Other specified pregnancy related conditions, third trimester (principal); Z3A.38 38 weeks gestation of pregnancy
CPT/HCPCS: 59025; 84112

== ENCOUNTER 2016-08-20 23:14 | Emergency (ER) | payer MEDICAID ==
--- NOTE | 2016-08-20 23:41 | PD ---
HPI Chief Complaint leaking fluid ? some CTXs Date Seen: August 20, 2016 Travel History International Travel<30 Days: No Contact w/Intl Traveler<30Days: No Known Affected Area: No History of Present Illness HPI 20 yo WF at 39 wks c/o leaking fluid per vagina, no bleeding , + rare CTXs , FHR reactive here no reg CTXs , amnisure is negative Para: 0 : 4 History Obstetric History Obstetric History 3 early preg losses Social History Alcohol Use: No Tobacco Use: No Substance Abuse: No Allergies-Medications (Allergen,Severity, Reaction): Coded Allergies: No Known Allergies (Unverified , 08/16/16) Home Meds Active Scripts Ferrous Gluconate 325 Mg [id number] Mg PO DAILY #30 TAB Ref 3 Prov:Cherri Gilmore CNMP 05/24/16 Vit W/ Ferric Phospha (Vitafol Gummies 3.33-0.333-34.8 mg)1 Chw Chw1 Tab PO DAILY #90 BOTTLE Ref 3 Prov:Veronika Matt 05/22/16 W/O Vit A W/ Fe Carbo (Prenate Mini 18-0.6-0.4-350 mg)1 Cap Cap Sample #2 Prov:Veronika Matt 04/27/16 Review of Systems General / Constitutional: No: Fever, Weight Gain, Chills, Other Eyes: No: Diploplia, Blurred Vision, Visual changes, Pain, Photophobia HENT: No: Headaches, Vertigo, Lightheadedness Cardiovascular: No: Irregular Rhythm, Chest Pain or Discomfort, Palpitations, Tachycardia, Syncope, Varicosities, Edema, Cyanosis Respiratory: No: Cough, Short of Breath, Other Gastrointestinal: No: Nausea, Vomiting, Diarrhea Genitourinary: No: Decreased Urinary Output, Oliguria Musculoskeletal: No: Limited ROM, Weakness, Cramping, Edema, Pain Skin: No Rash, No Itching, No Dryness, No Lumps, No Change in Pigmentation, No Change in Nails, No Alopecia, No Lesions Neurologic: No: Weakness, Dizziness, Syncope, Focal Abnormalities, Coordination Problem, Headache, Slurred Speech, Seizures Psychiatric: No: Depression, Suicidal Ideations, Homicidal Ideation Endocrine: No: Heat Intolerance, Cold Intolerance, Polydipsia, Polyuria, Other Physical Exam Narrative GENERAL: Well-nourished, well-developed patient. SKIN: Warm and dry. HEAD: Normocephalic and atraumatic. EYES: No scleral icterus. No injection or drainage. ENT: No nasal drainage noted. Mucous membranes pink. Airway patent. NECK: Supple, trachea midline. No JVD. CARDIOVASCULAR: Regular rate and rhythm without murmurs, gallops, or rubs. RESPIRATORY: Breath sounds equal bilaterally. No accessory muscle use. BREASTS: Bilateral exam showed no masses , no retractions, no nipple discharge. ABDOMEN/GI: Abdomen soft, non-tender, bowel sounds present, no rebound, no guarding Gravid to [38-] weeks size Fundal Height: 38 GENITOURINARY: External Genitalia: intact and normal in appearance BUS glands: [-] Cervix: [-] Dilatation: [1-] Effacement: [-] thick Station: [-3] post Presentation: [-vtx] Membranes: [intact ]amnisure neg Uterine Contractions: [occasional-] FHT's: Category: [1-] Baseline: [133-] Reactive: [-yes] Variability: [mod-] Decels: [-0] EXTREMITIES: No cyanosis or edema. BACK: Nontender without obvious deformity. No CVA tenderness. NEUROLOGICAL: Awake and alert. Motor and sensory grossly within normal limits. Five out of 5 muscle strength in all muscle groups. Normal speech. Data Data Labs amnisure negative MDM Interpretation(s) 39 wk IUP c/o vaginal leaking , no bleeding +occasional CTXs , amnisure is negative , vagina appears dry , cx 1/thick/high , NST reactive Plan D/C home Diagnosis Diagnosis: Primary Impression: No leakage of amniotic fluid into vagina Disposition: 01 DISCHARGE HOME Condition: Stable Sma Rodriguez II, MD August 20, 2016 23:40
[2016-08-23] MEDS ORDERED: ZANT150T2 PO (14:38)
[2016-09-27] MEDS ORDERED: TRI-TAB PO (11:08)
== END 2016-08-21 00:21 | disposition home or self-care (01) ==
LOC: HOBED 23:14
DX: O26.93 Pregnancy related conditions, unspecified, third trimester (principal); Z3A.39 39 weeks gestation of pregnancy
CPT/HCPCS: 59025; 84112

== ENCOUNTER 2016-08-24 15:19 | Emergency (ER) | payer MEDICAID ==
[~2016-08-24 15:19] MED LIST changes: +ZANT150T2 PO
--- NOTE | 2016-08-24 16:14 | PD ---
HPI Chief Complaint "I want the baby out", decreased movement Date Seen: August 24, 2016 Time Seen: 15:50 (Vinicius Call MD R1) Travel History International Travel<30 Days: No Contact w/Intl Traveler<30Days: No Known Affected Area: No (Vinicius Call MD R1) History of Present Illness HPI Patient is a 20-year-old at 39 weeks and 6 days who presents with a chief complaint of "I want the baby out" and suspected decreased movement. Patient reports that she has felt decreased movement over the past 3 days. She reports that she only feels baby move when dad pushes with greater force than she pushes. Patient reports that the baby used to move with consumption of sweets or cold water. Patient reports that she has performed kick counts every 2 hours. Her kick counts range from 0 kicks to 3- 4 kicks to over 10 kicks. She reports a normal leakage of fluid and denies any gush of fluid. She denies any vaginal bleeding or contractions. Patient's estimated date of delivery is tomorrow based on her LMP of November 18 and her early ultrasound. Patient endorses suprapubic pain with walking. Patient reports a headache with associated blurry vision and shaky feeling. She reports shortness of breath at night when she is lying on her side relaxing. She endorses nausea and vomiting, but is only had one episode of emesis this morning. She endorses fever at night, but has never measured disease. Patient also endorses right upper quadrant pain for the past week. She also reports that her ankles swell. She denies any chest pain, chills, dysuria. [facility] with Gila Chappuis. Para: 0 : 4 Last Menstrual Period: Nov 19, 2015 Miscarriage: 3 (Vinicius Call MD R1) History Past Medical History Narrative Medical Patient reports a history of anemia diagnosed 5 months of gestational age. Patient reports a history of asthma, but she has not required any inhaler medication for the past 2 years. 2 years ago, she needed to use her inhaler when she was around a dog a code was suspected allergy. She denies any history of hypertension or diabetes. (Vinicius Call MD R1) Obstetric History Obstetric History Patient reports a history of 3 early miscarriages. (Vinicius Call MD R1) Past Surgical History Surgical History: No Previous Surgery (Vinicius Call MD R1) Family History Narrative Family History Patient reports a family history of hypertension in her mother and hypertension and diabetes in her mother's parents. (Vinicius Call MD R1) Social History Narrative Social History Patient currently lives with her eliu and his grandmother nearby [place]. She feels safe at home Alcohol Use: No Tobacco Use: No Substance Abuse: No (Vinicius Call MD R1) Allergies-Medications (Allergen,Severity, Reaction): Coded Allergies: No Known Allergies (Unverified , 08/23/16) Comments Patient reports a dog allergy (Vinicius Call MD R1) Home Meds Active Scripts Ferrous Gluconate 325 Mg [id number] Mg PO DAILY #30 TAB Ref 3 Prov:Cherri Gilmore CNMP 05/24/16 Vit W/ Ferric Phospha (Vitafol Gummies 3.33-0.333-34.8 mg)1 Chw Chw1 Tab PO DAILY #90 BOTTLE Ref 3 Prov:Veronika Matt 05/22/16 W/O Vit A W/ Fe Carbo (Prenate Mini 18-0.6-0.4-350 mg)1 Cap Cap Sample #2 Prov:Veronika Matt 04/27/16 Reported Medications Ranitidine (Zantac)150 Mg [id number] Mg PO DAILY #30 TAB Ref 0 08/23/16 Review of Systems General / Constitutional: Fever, No: Chills Eyes: Blurred Vision (associated with headache) HENT: Headaches Cardiovascular: No: Chest Pain or Discomfort Respiratory: No: Short of Breath Gastrointestinal: Nausea, Vomiting, Abdominal Pain (patient endorses right upper quadrant pain) Genitourinary: No: Dysuria Musculoskeletal: Edema (patient endorses ankle swelling) (Vinicius Call MD R1) Physical Exam Borderline tachycardic with a heart rate 99, but normotensive. Narrative GENERAL: Well-nourished, well-developed patient. SKIN: Warm and dry. HEAD: Normocephalic and atraumatic. EYES: No scleral icterus. No injection or drainage. ENT: No nasal drainage noted. Mucous membranes pink. Airway patent. NECK: Supple, trachea midline. No JVD. CARDIOVASCULAR: Regular rate and rhythm without murmurs, gallops, or rubs. RESPIRATORY: Breath sounds equal bilaterally. No accessory muscle use. ABDOMEN/GI: Abdomen soft, non-tender, bowel sounds present, no rebound, no guarding Gravid to 40 weeks size GENITOURINARY: External Genitalia: intact and normal in appearance Cervix: Posterior Dilatation: 1 cm Effacement: 50% Station: -3 Presentation: Vertex Membranes: Membranes intact Uterine Contractions: None observed FHT's: Category: Category 1 Baseline: 140 bpm Reactive: Reactive Variability: Moderate variability Decels: No decelerations noted EXTREMITIES: No cyanosis or edema. BACK: Nontender without obvious deformity. No CVA tenderness. NEUROLOGICAL: Awake and alert. Motor and sensory grossly within normal limits. Five out of 5 muscle strength in all muscle groups. Normal speech. (Vniicius Call MD R1) Data Data Vital Signs Reviewed: Yes (Vinicius Call MD R1) MDM Plan Patient is a 20-year-old at 39 weeks and 6 days who presents with a chief complaint of "I want the baby out" and suspected decreased movement. 1) decreased movement Monitor vital signs Encourage by mouth hydration Monitor labor status with tocometry: No contractions noted Monitor heart rate with nonstress test: Reassuring Patient had ultrasound yesterday, 08/23/16, at [facility]. BPP 8 out of 8 FABIO within normal limits at 14.7 cm. Reassuring. papo Gilmore wdw Dr. Briseno (Vinicius Call MD R1) Attending Attestation Agree with note. Plan to d/c home. Post dates induction scheduled for 08/28 at 1999 for cervical ripening. instructions given for induction (Radha Briseno MD) Diagnosis Diagnosis: Primary Impression: Normal Qualified Code: Z34.93 - Normal , third trimester Additional Impression: Normal in third trimester Disposition: 01 DISCHARGE HOME Condition: Good Patient Instructions: Medical Induction of Labor (GEN) Additional Instructions: Induction scheduled for 08/28 at 1999 Vinicius Call MD R1 August 24, 2016 16:14 Radha Briseno MD August 24, 2016 16:42
[2016-09-27] MEDS ORDERED: TRI-TAB PO (11:08)
== END 2016-08-24 16:58 | disposition home or self-care (01) ==
LOC: HOBED 15:19
DX: O36.8130 Decreased fetal movements, third trimester, not applicable or unspecified (principal); O99.513 Diseases of the respiratory system complicating pregnancy, third trimester; J45.909 Unspecified asthma, uncomplicated; Z3A.39 39 weeks gestation of pregnancy
CPT/HCPCS: 59025; J3010

== ENCOUNTER 2016-08-28 19:31 | Inpatient (IN) | payer MEDICAID ==
[~2016-08-28] VITALS: Ht 167.6 cm; Wt 71.7 kg
[2016-08-28] MEDS ORDERED: LACTATED RINGER'S 1000 ML INJ 1,000 ML IV PRN (20:48)
--- NOTE | 2016-08-28 20:48 | HHI.HP ---
HPI Chief Complaint Here for induction Date Seen: August 28, 2016 Time Seen: 20:44 Travel History International Travel<30 Days: No Contact w/Intl Traveler<30Days: No Known Affected Area: No History of Present Illness HPI 20-year-old at 40 weeks and 3 days here for induction of labor. Patient has no complaints at this time, although she had late care she has had no issues during her except for occasional heartburn. Patient was diagnosed with anemia with her last set of blood work and was placed on iron as well as her regular vitamin. Patient has a history of asthma earlier in her life but she has not been on an inhaler during the Para: 0 : 1 History Past Medical History Medical History: Denies Significant Hx Past Surgical History Surgical History: No Previous Surgery Family History Family History: Negative Social History Alcohol Use: No Tobacco Use: No Substance Abuse: No Allergies-Medications (Allergen,Severity, Reaction): Coded Allergies: No Known Allergies (Unverified , 08/23/16) Home Meds Active Scripts Ferrous Gluconate 325 Mg [id number] Mg PO DAILY #30 TAB Ref 3 Prov:Cherri Gilmore CNMP 05/24/16 Vit W/ Ferric Phospha (Vitafol Gummies 3.33-0.333-34.8 mg)1 Chw Chw1 Tab PO DAILY #90 BOTTLE Ref 3 Prov:Veronika Matt 05/22/16 W/O Vit A W/ Fe Carbo (Prenate Mini 18-0.6-0.4-350 mg)1 Cap Cap Sample #2 Prov:Veronika Matt 04/27/16 Reported Medications Ranitidine (Zantac)150 Mg [id number] Mg PO DAILY #30 TAB Ref 0 08/23/16 Review of Systems Except as stated in HPI: all other systems reviewed are Neg Physical Exam Narrative GENERAL: Well-nourished, well-developed patient. SKIN: Warm and dry. HEAD: Normocephalic and atraumatic. EYES: No scleral icterus. No injection or drainage. ENT: No nasal drainage noted. Mucous membranes pink. Airway patent. NECK: Supple, trachea midline. No JVD. CARDIOVASCULAR: Regular rate and rhythm without murmurs, gallops, or rubs. RESPIRATORY: Breath sounds equal bilaterally. No accessory muscle use. BREASTS: Bilateral exam showed no masses , no retractions, no nipple discharge. ABDOMEN/GI: Abdomen soft, non-tender, bowel sounds present, no rebound, no guarding Gravid to [40-] weeks size Fundal Height: [-] GENITOURINARY: External Genitalia: intact and normal in appearance BUS glands: [Normal-] Cervix: [-Posterior] Dilatation: [-1] Effacement: [50-] Station: [--3] Presentation: [-Vertex] Membranes: Intact Uterine Contractions: Every 5 minutes FHT's: Category: [-1] Baseline: 140 Reactive: Moderate Variability: Moderate Decels: Absent EXTREMITIES: No cyanosis or edema. BACK: Nontender without obvious deformity. No CVA tenderness. NEUROLOGICAL: Awake and alert. Motor and sensory grossly within normal limits. Five out of 5 muscle strength in all muscle groups. Normal speech. Data Data Vital Signs Reviewed: Yes Assessment/Plan Assessment and Plan 20-year-old at 40 weeks and 3 days here for induction Group B strep is negative Plan Cytotec 25 g with a repeat dose every 4 hours Meghan Mak MD August 28, 2016 20:48
[2016-08-28] MEDS ORDERED: LIDOCAINE HCL 1% 50 ML VIAL INFIL PRN (21:00)
[2016-08-28] MEDS ORDERED: ONDANSETRON HCL 4 MG/2 ML VIAL IV PRN (21:00)
[2016-08-28] MEDS ORDERED: ZOLPIDEM TARTRATE 10 MG TAB PO PRN (21:00)
[2016-08-28] MEDS ORDERED: SODIUM CHLORID 0.9% 500 ML INJ 500 ML IV PRN (21:00)
[2016-08-28] MEDS ORDERED: LIDOCAINE HCL 1% 50 ML VIAL I-DERMAL PRN (21:00)
[2016-08-28] MEDS ORDERED: CITRIC ACID-SODIUM CITRATE LIQ 30 ML UDC PO SCH (21:00)
[2016-08-28] MEDS ORDERED: OXYTOCIN 30 UNITS-500ML PREMIX 500 ML IV ONE (21:00)
[2016-08-28] MEDS ORDERED: MINERAL OIL 10 ML VIAL TOPICAL PRN (21:00)
[2016-08-28] MEDS ORDERED: SODIUM CHLOR 0.9% 1000 ML INJ 1,000 ML IV PRN (21:08)
[2016-08-28] MEDS ORDERED: SODIUM CHLORIDE 0.9% FLUSH 10 ML FLUSH IV FLUSH PRN (21:15)
[2016-08-28 21:19] LABS: AUTOMATED NEUTROPHIL # 6.8 TH/MM3 (1.8-7.7); BASOPHIL % 0.4 % (0.0-2.0); EOSINOPHIL # 0.1 TH/MM3 (0-0.4); EOSINOPHIL % 1.1 % (0.0-4.0); HEMATOCRIT 31.7 % (35.0-46.0); HEMO FLAGS DIFF FINAL; LYMPH % 19.6 % (9.0-44.0); LYMPHOCYTE # 1.9 TH/MM3 (1.0-4.8); MEAN CELL VOLUME 82.6 FL (80.0-100.0); MEAN CORPUSCULAR HEMOGLOBIN 27.2 PG (27.0-34.0); MEAN CORPUSCULAR HGB CONC 32.9 % (32.0-36.0); MONO % 7.7 % (0.0-8.0); NEUT % 71.2 % (16.0-70.0); PLATELET COUNT 212 TH/MM3 (150-450); RED BLOOD COUNT 3.84 MIL/MM3 (4.00-5.30); RED CELL DISTRIBUTION WIDTH 13.1 % (11.6-17.2); WHITE BLOOD COUNT 9.6 TH/MM3 (4.0-11.0)
[2016-08-28 21:20] LABS: BACTERIA, URINE RARE /hpf; BLOOD, URINE NEG (NEG); COMMENT (UR) CULT NOT INDICATED; CULTURE IF INDICATED CULT NOT INDICATED; GLUCOSE,URINE NEG (NEG); KETONE, URINE NEG (NEG); NITRITE,URINE NEG (NEG); SQUAMOUS EPITHELIAL CELL URINE 1 /hpf (0-5); URINE COLOR YELLOW (YELLW/STRAW)
[2016-08-28] MEDS: LACTATED RINGER'S 1000 ML INJ 1,000 ML IV SCH ×2 (21:28→21:29)
[2016-08-28] MEDS: FAMOTIDINE 20 MG TAB PO SCH (21:28)
[2016-08-28] MEDS: MISOPROSTOL 25 MCG SUPP VAGINAL PRN (21:29)
[2016-08-28 21:42] VITALS: RESP 18
[2016-08-28 22:27] VITALS: BP 106/56; PULSE 59; RESP 18; TEMP 98
[2016-08-28 22:59] VITALS: BP 107/62; PULSE 66
[2016-08-28 23:00] VITALS: RESP 18
[2016-08-28 23:43] VITALS: RESP 18
[2016-08-29] VITALS (79 sets, daily range): BP systolic 93–147; BP diastolic 59–96; PULSE 57–129; RESP 18; TEMP 97.7–98.8; O2SAT 99–100
[2016-08-29] MEDS: LACTATED RINGER'S 1000 ML INJ 1,000 ML IV SCH (02:00)
[2016-08-29] MEDS: MISOPROSTOL 25 MCG SUPP VAGINAL PRN (02:05)
[2016-08-29] MEDS ORDERED: OXYTOCIN 30 UNITS/NS 500ML PREMIX IV SCH (03:00)
[2016-08-29] MEDS ORDERED: fentaNYL 2MCG-BUPIV 0.125% INJ 100 ML ONE (05:44)
[2016-08-29] MEDS ORDERED: fentaNYL 2MCG-BUPIV 0.125% 100 ML EPIDURAL SCH (07:15)
[2016-08-29] MEDS ORDERED: NO SYSTEM NARCOTICS PRN (07:15)
[2016-08-29] MEDS ORDERED: DO NOT ADMINISTER ANTICOAGULANTS PRN (07:15)
[2016-08-29] MEDS ORDERED: ePHEDrine/NS 25 MG/5 ML SYR IV PRN (07:30)
--- NOTE | 2016-08-29 08:24 | PD.LABORPN ---
Subjective Subjective 20-year-old at 40 weeks and 4 days who presented for induction of labor. Pt resting comfortably with epidural. Family present at bedside. She denies any pain. Complications Late care Post dates Anemia Hx of Asthma, no use of inhaler during (Mk Joaquin MD R2) Objective Vital Signs Vital Signs Date Time Temp Pulse Resp B/P Pulse Ox O2 Delivery O2 Flow Rate FiO2 08/29/16 08:05 67 08/29/16 08:00 62 08/29/16 08:00 66 100/71 08/29/16 07:45 73 108/70 08/29/16 07:45 70 08/29/16 07:30 66 08/29/16 07:30 63 101/72 08/29/16 07:25 76 08/29/16 07:20 77 08/29/16 07:15 66 117/78 08/29/16 07:15 66 08/29/16 07:00 67 118/75 08/29/16 07:00 72 08/29/16 06:57 18 08/29/16 06:45 70 08/29/16 06:45 57 113/75 08/29/16 06:35 85 08/29/16 06:30 77 08/29/16 06:30 18 08/29/16 06:30 70 112/76 08/29/16 06:25 72 08/29/16 06:25 81 119/77 08/29/16 06:20 85 125/88 08/29/16 06:20 77 08/29/16 06:15 69 08/29/16 06:15 75 123/93 08/29/16 06:10 95 129/84 08/29/16 06:10 77 08/29/16 06:05 83 125/76 08/29/16 06:05 86 08/29/16 06:04 98.1 18 08/29/16 06:03 18 08/29/16 06:00 82 133/82 08/29/16 06:00 81 08/29/16 05:55 87 08/29/16 05:55 82 130/86 08/29/16 05:51 18 08/29/16 05:50 82 128/87 08/29/16 04:11 18 08/29/16 01:54 71 110/69 08/29/16 01:53 97.9 18 Objective Pelvic Exam: Cervix: midposition, soft Dilatation: 5cm Effacement: 80% Station: -1 Presentation: Vertex Membranes: Artificially ruptured Uterine Contractions: Q2-3 minutes FHT's: Category: 2 Baseline: 125 Reactive: - Variability: minimal Decels: Absent (Mk Joaquin MD R2) Assessment/Plan Assessment and Plan 20-year-old at 40 weeks and 4 days admitted for induction of labor. 1) IUP Category 2 tracing Will start Pitocin at rate of 1-1-30 Pain will controlled with epidural Continue routine expectant management Anticipate vaginal delivery Artificial rupture of membranes, preformed at 0832 While wearing sterile gloves two fingers were passed through the cervix. The amnihook was advanced between fingers and pressed against amniotic sac to monge membranes. About 70cc of clear fluid was expressed. scalp electrode placed. Pateint seen and discussed with Dr. Mak and Dr. Call, pts nurse present at bedside (Mk Joaquin MD R2) Collaborating MD Comments Category 2 tracing now category 1 after AROM and placement of FSE. Will start pitocin augmentation due to hypotonic labor pattern. FHR 140, moderate variability, reactive. No decelerations noted. Contractions [id number] (Meghan Mak MD) Mk Joaquin MD R2 August 29, 2016 08:23 Meghan Mak MD August 30, 2016 17:33
[2016-08-29] MEDS ORDERED: SODIUM CHLORIDE 0.9% FLUSH 10 ML FLUSH IV FLUSH SCH ×2 (09:00→21:00)
[2016-08-29] MEDS: FAMOTIDINE 20 MG TAB PO SCH ×2 (09:02→21:00)
[2016-08-29] MEDS ORDERED: DIPHTH/TETANUS/ACEL PERTUSSIS (BOOSTER) 0.5 ML VIAL/PFS IM ONE (16:00)
[2016-08-29] MEDS ORDERED: MEASLES, MUMPS, RUBELLA VACCINE 0.5 ML VIAL SQ ONE (16:00)
--- NOTE | 2016-08-29 17:26 | PD.OB.DELI ---
Delivery Date: August 29, 2016 Anesthesia: Epidural Episiotomy: None Vaginal Delivery: Normal Presentation: Occiput anterior Nuchal Cord: None Delayed cord clamping (45 sec): No Shoulder Dystocia: Suprapubic pressure given, Dipak maneuver done Infant: Female One Minute : 8 Five Minute : 9 Weight: 3880grams Placenta: Spontaneous delivery, Intact, 3 vessel cord Laceration: No lacerations Additional Information Delivered by Dr Aye Call, under my supervision. Frank Santoyo MD August 29, 2016 17:26
[2016-08-29] MEDS ORDERED: ONDANSETRON ODT 4 MG TAB PO PRN (17:30)
[2016-08-29] MEDS ORDERED: DOCUSATE SODIUM 50 MG/SENNA 8.6 MG TAB PO PRN (17:30)
[2016-08-29] MEDS ORDERED: SODIUM CHLORIDE 0.9% FLUSH 10 ML FLUSH IV FLUSH PRN (17:30)
[2016-08-29] MEDS ORDERED: ZOLPIDEM TARTRATE 5 MG TAB PO PRN (17:30)
[2016-08-29] MEDS ORDERED: ALUMINUM/MAGNESIUM/SIMETH 30 ML CUP PO PRN (17:30)
[2016-08-29] MEDS ORDERED: WITCH HAZEL 50%/GLYCERIN 12.5% 40 PAD JAR TOPICAL PRN (18:00)
[2016-08-29] MEDS ORDERED: oxyCODONE/ACETAMINOPHEN 5 MG/325 MG TAB PO PRN (18:00)
[2016-08-29] MEDS ORDERED: BENZOCAINE 20% TOPICAL SPRAY 60 ML CAN TOPICAL PRN (18:00)
[2016-08-29] MEDS: IBUPROFEN 600 MG TAB PO PRN (22:04)
[2016-08-29] MEDS: ACETAMINOPHEN 325 MG TAB PO PRN (22:05)
[2016-08-30] MEDS: IBUPROFEN 600 MG TAB PO PRN ×2 (04:38→16:12)
[2016-08-30] MEDS: ACETAMINOPHEN 325 MG TAB PO PRN ×2 (04:38→16:11)
[2016-08-30 08:00] VITALS: BP 112/79; PULSE 59; RESP 16; TEMP 98
--- NOTE | 2016-08-30 08:31 | HHI.OB ---
Subjective Post Day: 1 Remarks Pt seen and examined this morning. day # 1 AFVSS overnight. Decreased lochia. Denies dysuria. No breast tenderness. She is feeding the baby via breast and bottle. Appetite good. No nausea or vomiting. Patient has not yet had a bowel movement. +Flatus. Ambulating well. Denies calf pain or shortness of breath. Otherwise, she is doing well this morning and has no other concerns. Objective Vitals/I&O Vital Signs Date Time Temp Pulse Resp B/P Pulse Ox O2 Delivery O2 Flow Rate FiO2 08/29/16 20:44 98.8 64 18 125/77 08/29/16 20:07 18 08/29/16 20:00 84 123/78 08/29/16 19:45 69 118/78 08/29/16 19:30 74 117/80 08/29/16 19:30 18 08/29/16 19:15 80 120/79 08/29/16 19:00 81 122/73 08/29/16 18:54 97.7 18 08/29/16 18:45 88 124/75 08/29/16 18:30 80 123/73 08/29/16 18:15 84 120/70 08/29/16 18:04 18 08/29/16 18:01 71 138/88 08/29/16 18:00 18 08/29/16 17:45 67 136/90 08/29/16 17:31 64 118/60 08/29/16 17:31 98.6 18 08/29/16 17:31 98.6 18 08/29/16 17:15 95 147/87 08/29/16 17:00 81 120/81 08/29/16 16:30 69 120/76 08/29/16 16:30 69 120/76 08/29/16 16:26 98.1 08/29/16 16:26 18 08/29/16 16:16 59 125/66 08/29/16 16:00 77 134/69 08/29/16 15:30 59 129/75 08/29/16 15:17 75 130/86 08/29/16 15:15 67 124/92 08/29/16 15:00 72 128/67 08/29/16 14:45 62 120/80 08/29/16 14:32 62 117/88 08/29/16 14:30 74 125/91 08/29/16 14:15 71 129/80 08/29/16 14:10 98.6 18 08/29/16 14:01 77 130/96 08/29/16 13:45 58 117/72 08/29/16 13:30 58 101/59 08/29/16 13:16 60 93/59 08/29/16 13:00 67 120/80 08/29/16 12:45 57 121/77 08/29/16 12:30 60 114/74 08/29/16 12:18 98.2 18 08/29/16 12:16 61 105/62 08/29/16 12:08 18 08/29/16 12:01 65 119/66 08/29/16 11:45 64 106/74 08/29/16 09:25 68 08/29/16 09:20 75 08/29/16 09:15 67 08/29/16 09:15 62 114/80 08/29/16 09:00 118 126/96 08/29/16 09:00 129 08/29/16 08:49 97.9 18 08/29/16 08:46 98 119/68 08/29/16 08:45 76 99 08/29/16 08:40 73 99 08/29/16 08:35 78 99 08/29/16 08:30 58 08/29/16 08:30 72 128/81 100 Objective Remarks GENERAL: Well-nourished, well-developed patient. CARDIOVASCULAR: Regular rate and rhythm without murmurs, gallops, or rubs. RESPIRATORY: Breath sounds equal bilaterally. No accessory muscle use. ABDOMEN/GI: Abdomen soft, non-tender. Fundus: Firm, non-tender at umbilicus. GENITOURINARY: Light to moderate bleeding. EXTREMITIES: No cyanosis or edema, non-tender, without signs of DVT. Medications and IVs Current Medications Medications (Trade) Dose Ordered Sig/Lisa Route Start Time Stop Time Status Last Admin Famotidine 20 mg 20 mg BID PO 08/28/16 21:00 08/29/16 09:02 (Pitocin 30 Units-NS 500 ml Premix) 500 ml @ 0 mls/hr TITRATE IV 08/29/16 03:00 08/29/16 09:18 (NS Flush) 2 ml BID IV FLUSH 08/29/16 21:00 (NS Flush) 2 ml UNSCH PRN IV FLUSH 08/29/16 17:30 (Tylenol) 650 mg Q4H PRN PO 08/29/16 18:00 08/30/16 04:38 (Motrin) 600 mg Q6H PRN PO 08/29/16 17:30 08/30/16 04:38 (Percocet 5-325 Mg) 1 tab Q4H PRN PO 08/29/16 18:00 (Americaine 20% Top Spr) 1 spray Q4H PRN TOPICAL 08/29/16 18:00 (Tucks Pads) 1 applic QID PRN TOPICAL 08/29/16 18:00 (Callie-Colace) 2 tab Q12H PRN PO 08/29/16 17:30 (Ambien) 5 mg HS PRN PO 08/29/16 17:30 (Mag-Al Plus Susp Liq) 15 ml Q8H PRN PO 08/29/16 17:30 (Zofran Odt) 4 mg Q6H PRN PO 08/29/16 17:30 Assessment/Plan Assessment and Plan 20 y/o female who is PPD# 1 s/p . -Continue routine care. -Percocet and Motrin PRN pain. -Encouraged OOB. Advised pelvic rest for 6 wks. -Re: ctrl, she would like to further discuss her options with OB care provider. -Anticipate discharge tomorrow. wdw MD Jemal Rios Mariaah MD R2 August 30, 2016 08:31
[2016-08-30] MEDS: FAMOTIDINE 20 MG TAB PO SCH ×2 (09:00→19:54)
[2016-08-30 19:30] VITALS: BP 123/83; PULSE 54; RESP 17; TEMP 98
[2016-08-31] MEDS: ACETAMINOPHEN 325 MG TAB PO PRN (08:08)
[2016-08-31] MEDS: IBUPROFEN 600 MG TAB PO PRN (08:09)
[2016-08-31 08:10] VITALS: BP 128/85; PULSE 57; RESP 16; TEMP 98.3
[2016-08-31] MEDS: FAMOTIDINE 20 MG TAB PO SCH (09:00)
[2016-08-31] MEDS ORDERED: Ibuprofen PO (12:17)
[2016-08-31] MEDS ORDERED: ACET1TAB86 PO (12:17)
--- NOTE | 2016-08-31 12:19 | HHI.DCPOC ---
Discharge Care Plan Diagnosis: (1) Normal Report Symptoms to Your Doctor -Temperature above 100.5 degrees -Redness, of incision or excessive or foul smelling drainage -Unusual pain or calf pain -Increased vaginal bleeding -Painful or difficulty urinating -Feelings of extreme sadness or anxiety after 2 weeks Goals to Promote Your Health * To prevent worsening of your condition and complications, please follow-up with your doctor within 6 weeks. * To maintain your health at the optimal level, please stay well hydrated, eat a well-balanced diet, and exercise regularly. Directions to Meet Your Goals Take your medications as prescribed Follow your dietary instruction Follow activity as directed Ensure plenty of rest for recovery Drink fluids for hydration Keep your appointments as scheduled Take your immunizations and boosters as scheduled If your symptoms worsen call your PCP, if no PCP go to Urgent Care Center or Emergency Room Smoking is Dangerous to Your Health. Avoid second hand smoke Call the 24-hour crisis hotline for domestic abuse at Vinicius Call MD R1 August 31, 2016 12:19
--- NOTE | 2016-08-31 12:20 | HHI.OB ---
Subjective Post Day: 2 Remarks Patient is a 20-year-old delivered at 40 weeks and 4 days. Patient is day 2 after normal vaginal delivery. Patient's pain is well- controlled. Patient reports that her headache and back pain, 10 out of 10 if unmedicated. If she takes a pain pill when pain is 4 out of 10, it goes away. Patient reports eating and drinking without any nausea or vomiting. Patient reports minimal bleeding. Patient has passed gas and bowel movements. Patient is walking without lower extremity pain or shortness of breath. Patient reports desire to arrange contraception with her outpatient doctor and bottle-feeding and breast-feeding. (Vinicius Call MD R1) Objective Vitals/I&O Vital Signs Date Time Temp Pulse Resp B/P Pulse Ox O2 Delivery O2 Flow Rate FiO2 08/31/16 08:10 98.3 57 16 128/85 08/30/16 19:30 98.0 54 17 123/83 Objective Remarks GENERAL: Well-nourished, well-developed patient. CARDIOVASCULAR: Regular rate and rhythm without murmurs, gallops, or rubs. RESPIRATORY: Breath sounds equal bilaterally. No accessory muscle use. ABDOMEN/GI: Abdomen soft, non-tender. Fundus: Firm, non-tender at umbilicus. GENITOURINARY: Light to moderate bleeding. EXTREMITIES: No cyanosis or edema, non-tender, without signs of DVT. Medications and IVs Current Medications Medications (Trade) Dose Ordered Sig/Lisa Route Start Time Stop Time Status Last Admin Famotidine 20 mg 20 mg BID PO 08/28/16 21:00 08/30/16 19:54 (Pitocin 30 Units-NS 500 ml Premix) 500 ml @ 0 mls/hr TITRATE IV 08/29/16 03:00 08/29/16 09:18 (NS Flush) 2 ml BID IV FLUSH 08/29/16 21:00 (NS Flush) 2 ml UNSCH PRN IV FLUSH 08/29/16 17:30 (Tylenol) 650 mg Q4H PRN PO 08/29/16 18:00 08/31/16 08:08 (Motrin) 600 mg Q6H PRN PO 08/29/16 17:30 08/31/16 08:09 (Percocet 5-325 Mg) 1 tab Q4H PRN PO 08/29/16 18:00 (Americaine 20% Top Spr) 1 spray Q4H PRN TOPICAL 08/29/16 18:00 (Tucks Pads) 1 applic QID PRN TOPICAL 08/29/16 18:00 (Callie-Colace) 2 tab Q12H PRN PO 08/29/16 17:30 (Ambien) 5 mg HS PRN PO 08/29/16 17:30 (Mag-Al Plus Susp Liq) 15 ml Q8H PRN PO 08/29/16 17:30 (Zofran Odt) 4 mg Q6H PRN PO 08/29/16 17:30 (Vinicius Call MD R1) Assessment/Plan Problem List: (1) Normal (2) (normal spontaneous vaginal delivery) Assessment and Plan Patient is a 20-year-old delivered at 40 weeks and 4 days. Patient is day 2 after normal vaginal delivery. -Continue routine care. -Percocet and Motrin PRN pain. Discharge on Tylenol and Motrin. -Encouraged OOB. Advised pelvic rest for 6 wks and follow-up at that time. -Re: ctrl, she would like to further discuss her options with OB care provider. -Anticipate discharge today. papo Mak Discharge Planning Discharge today. (Vinicius Call MD R1) Collaborating MD Comments Agree with care and management (Meghan Mak MD) Vinicius Call MD R1 August 31, 2016 12:20 Meghan Mak MD September 04, 2016 09:20
[2016-09-27] MEDS ORDERED: TRI-TAB PO (11:08)
== END 2016-08-31 15:16 | disposition home or self-care (01) | DRG 774 ==
LOC: H2EB 19:31 → H1EA 08-29 20:20
PROVIDERS: ADMIT Obstetrics & Gynecology Obstetrics; ATTEND Obstetrics & Gynecology Obstetrics
PROC: 3E0P7GC Introduction of Other Therapeutic Substance into Female Reproductive, Via Natural or Artificial Opening (ICD-10-PCS; 2016-08-28)
PROC: 10E0XZZ Delivery of Products of Conception, External Approach (ICD-10-PCS; principal; 2016-08-29)
PROC: 10907ZC Drainage of Amniotic Fluid, Therapeutic from Products of Conception, Via Natural or Artificial Opening (ICD-10-PCS; 2016-08-29)
PROC: 10H073Z Insertion of Monitoring Electrode into Products of Conception, Via Natural or Artificial Opening (ICD-10-PCS; 2016-08-29)
PROC: 3E0S3CZ (ICD-10-PCS; 2016-08-29)
PROC: 00HU33Z Insertion of Infusion Device into Spinal Canal, Percutaneous Approach (ICD-10-PCS; 2016-08-29)
DX: O48.0 Post-term pregnancy (principal); O90.89 Other complications of the puerperium, not elsewhere classified; D64.9 Anemia, unspecified; R51 Headache; M54.9 Dorsalgia, unspecified; O66.0 Obstructed labor due to shoulder dystocia; O99.02 Anemia complicating childbirth; Z3A.40 40 weeks gestation of pregnancy; Z37.0 Single live birth
CPT/HCPCS: 59025; 81001; 85025; 86900; 86901; 90707; 90715; J2405; J2590; J3010; J7040; J7120

== ENCOUNTER 2016-12-06 10:32 | Emergency (ER) | payer SELFPAY ==
[~2016-12-06] VITALS: Ht 167.6 cm; Wt 60.0 kg
[~2016-12-06 10:32] MED LIST changes: -FERR325T72 PO; -PREN1CHW7 PO; +TRI-TAB PO; -ZANT150T2 PO
[2016-12-06 10:35] VITALS: BP 114/71; PULSE 66; RESP 16; TEMP 98.7; O2SAT 99
--- NOTE | 2016-12-06 11:02 | PD ---
HPI Chief Complaint: Cold / Flu Symptoms Time Seen by Provider: 10:41 Travel History International Travel<30 days: No Contact w/Intl Traveler<30days: No Traveled to known affect area: No History of Present Illness HPI 21-year-old female complains of general malaise and body ache. Patient states that symptoms started about 5 days ago. Patient states that she has mild aching headache. Patient denies any visual change. Patient denies any neck pain. Patient denies any chest pain or shortness of breath. Patient denies abdominal pain. Patient states that she has intermittent mild nausea but no vomiting or diarrhea. Patient denies any dysuria or frequency. Patient denies any vaginal discharge or bleeding. PFSH Past Medical History Asthma: Yes Diminished Hearing: No ?: Not LMP: 11/2016 : 3 Miscarriage: 3 Social History Alcohol Use: No Tobacco Use: No Substance Use: No Allergies-Medications (Allergen,Severity, Reaction): Coded Allergies: No Known Allergies (Unverified , 12/06/16) Reported Meds & Prescriptions Reported Meds & Active Scripts Active Tri-Sprintec (Norgestimate-Ethinyl Estradiol) 0.18/0.215/0.25 Mg-35 Mcg Tab 1 Tab PO DAILY Review of Systems General / Constitutional: No: Fever Eyes: No: Visual changes HENT: No: Headaches Cardiovascular: No: Chest Pain or Discomfort Respiratory: No: Shortness of Breath Gastrointestinal: No: Abdominal Pain Genitourinary: No: Dysuria Musculoskeletal: No: Pain Skin: No Rash Neurologic: No: Weakness Psychiatric: No: Depression Endocrine: No: Polydipsia Hematologic/Lymphatic: No: Easy Bruising Physical Exam Narrative GENERAL: Well-nourished, well-developed patient. SKIN: Focused skin assessment warm/dry. HEAD: Normocephalic. EYES: No scleral icterus. No injection or drainage. NECK: Supple, trachea midline. No JVD or lymphadenopathy. CARDIOVASCULAR: Regular rate and rhythm without murmurs, gallops, or rubs. RESPIRATORY: Breath sounds equal bilaterally. No accessory muscle use. GASTROINTESTINAL: Abdomen soft, non-tender, nondistended. MUSCULOSKELETAL: No cyanosis, or edema. BACK: Nontender without obvious deformity. No CVA tenderness. Neurologic exam normal. Data Data Last Documented VS Vital Signs Date Time Temp Pulse Resp B/P (MAP) Pulse Ox O2 Delivery O2 Flow Rate FiO2 12/06/16 10:35 98.7 66 16 114/71 (85) 99 Orders Orders Complete Blood Count With Diff (12/06/16 10:45) Comprehensive Metabolic Panel (12/06/16 10:45) Urinalysis - C+S If Indicated (12/06/16 10:45) Iv Access Insert/Monitor (12/06/16 10:45) Ed Urine Pregnancytest Poc (12/06/16 10:45) Labs Laboratory Tests Test 12/06/16 09:40 12/06/16 09:45 Urine Color YELLOW Urine Turbidity CLEAR Urine pH 6.0 Urine Specific [place] 1.025 Urine Protein 30 mg/dL Urine Glucose (UA) NEG mg/dL Urine Ketones NEG mg/dL Urine Occult Blood NEG Urine Nitrite NEG Urine Bilirubin NEG Urine Urobilinogen LESS THAN 2.0 MG/DL Urine Leukocyte Esterase NEG Urine RBC 2 /hpf Urine WBC 4 /hpf Urine Squamous Epithelial Cells <1 /hpf Urine Bacteria RARE /hpf Urine Hyaline Casts 1 /lpf Urine Mucus FEW /lpf Microscopic Urinalysis Comment CULT NOT INDICATED White Blood Count 6.4 TH/MM3 Red Blood Count 4.44 MIL/MM3 Hemoglobin 12.6 GM/DL Hematocrit 38.2 % Mean Corpuscular Volume 86.1 FL Mean Corpuscular Hemoglobin 28.4 PG Mean Corpuscular Hemoglobin Concent 33.0 % Red Cell Distribution Width 14.5 % Platelet Count 277 TH/MM3 Mean Platelet Volume 9.5 FL Neutrophils (%) (Auto) 44.6 % Lymphocytes (%) (Auto) 40.5 % Monocytes (%) (Auto) 7.3 % Eosinophils (%) (Auto) 7.0 % Basophils (%) (Auto) 0.6 % Neutrophils # (Auto) 2.8 TH/MM3 Lymphocytes # (Auto) 2.6 TH/MM3 Monocytes # (Auto) 0.5 TH/MM3 Eosinophils # (Auto) 0.5 TH/MM3 Basophils # (Auto) 0.0 TH/MM3 CBC Comment DIFF FINAL Differential Comment Blood Urea Nitrogen 11 MG/DL Creatinine 0.70 MG/DL Random Glucose 86 MG/DL Total Protein 7.8 GM/DL Albumin 3.8 GM/DL Calcium Level 9.0 MG/DL Alkaline Phosphatase 59 U/L Aspartate Amino Transf (AST/SGOT) 12 U/L Alanine Aminotransferase (ALT/SGPT) 18 U/L Total Bilirubin 1.0 MG/DL Sodium Level 139 MEQ/L Potassium Level 3.8 MEQ/L Chloride Level 106 MEQ/L Carbon Dioxide Level 25.3 MEQ/L Anion Gap 8 MEQ/L Estimat Glomerular Filtration Rate 106 ML/MIN MDM Medical Decision Making Medical Screen Exam Complete: Yes Emergency Medical Condition: Yes Interpretation(s) 12:02 PM. CBC within normal limit. CMP within normal limit. UA is negative. Differential Diagnosis Differential diagnosis including viral syndrome, URI, UTI, electrolyte imbalance. Narrative Course 21-year-old female with body ache and generalized malaise. Diagnosis Primary Impression: Viral syndrome Patient Instructions: General Instructions Additional Instructions: Tylenol Advil for aching pain. Follow-up with personal physician. Return if worse. Med/Other Pt SpecificInfo: No Meds Exist/No RX given Disposition: 01 DISCHARGE HOME Condition: Stable Gianfranco Sanchez MD Dec 06, 2016 11:02
[2016-12-06 11:36] LABS: AUTOMATED NEUTROPHIL # 2.8 TH/MM3 (1.8-7.7); BASOPHIL % 0.6 % (0.0-2.0); EOSINOPHIL # 0.5 TH/MM3 (0-0.4); HEMATOCRIT 38.2 % (35.0-46.0); HEMO FLAGS DIFF FINAL; LYMPH % 40.5 % (9.0-44.0); LYMPHOCYTE # 2.6 TH/MM3 (1.0-4.8); MEAN CELL VOLUME 86.1 FL (80.0-100.0); MEAN CORPUSCULAR HEMOGLOBIN 28.4 PG (27.0-34.0); MONO % 7.3 % (0.0-8.0); NEUT % 44.6 % (16.0-70.0); PLATELET COUNT 277 TH/MM3 (150-450); RED BLOOD COUNT 4.44 MIL/MM3 (4.00-5.30); RED CELL DISTRIBUTION WIDTH 14.5 % (11.6-17.2); WHITE BLOOD COUNT 6.4 TH/MM3 (4.0-11.0)
[2016-12-06 11:37] LABS: BACTERIA, URINE RARE /hpf; BLOOD, URINE NEG (NEG); GLUCOSE,URINE NEG (NEG); HYALINE CAST, URINE 1 /lpf (RARE); KETONE, URINE NEG (NEG); MUCUS URINE FEW /lpf (OCC); NITRITE,URINE NEG (NEG); SQUAMOUS EPITHELIAL CELL URINE <1 /hpf (0-5); URINE COLOR YELLOW (YELLW/STRAW)
[2016-12-06 11:38] LABS: COMMENT (UR) CULT NOT INDICATED; CULTURE IF INDICATED CULT NOT INDICATED
[2016-12-06 11:51] LABS: ANION GAP 8 MEQ/L (5-15); AST (GOT) 12 U/L (15-37); BICARBONATE 25.3 MEQ/L (21.0-32.0); BLOOD UREA NITROGEN 11 MG/DL (7-18); CHLORIDE 106 MEQ/L (98-107); GLOMERULAR FILTRATION RATE 106 ML/MIN (>89); POTASSIUM 3.8 MEQ/L (3.5-5.1); SODIUM (NA) 139 MEQ/L (136-145)
[2016-12-06 11:55] LABS: ALKALINE PHOSPHATASE 59 U/L (45-117); ALT (GPT) 18 U/L (10-53)
== END 2016-12-06 12:43 | disposition home or self-care (01) ==
LOC: NEPD 10:32
DX: B34.9 Viral infection, unspecified (principal); J45.909 Unspecified asthma, uncomplicated; Z79.899 Other long term (current) drug therapy
CPT/HCPCS: 80053; 81001; 84703; 85025; 99283

== ENCOUNTER 2017-03-05 10:03 | Emergency (ER) | payer MEDICAID ==
[~2017-03-05] VITALS: Ht 167.6 cm; Wt 76.0 kg
[2017-03-05 10:05] VITALS: BP 124/78; PULSE 79; RESP 16; TEMP 97.9; O2SAT 99
--- NOTE | 2017-03-05 11:34 | PD ---
HPI Chief Complaint: Abdominal Pain Time Seen by Provider: 11:00 Travel History International Travel<30 days: No Contact w/Intl Traveler<30days: No Traveled to known affect area: No History of Present Illness HPI 21-year-old A3 female resents to the emergency room for evaluation of nausea, vomiting, and dizziness for the past 3 days. She has associated urgency. She has had 2 episodes per day of nonbloody, nonbilious vomit. No diarrhea. No abdominal pain. Last menstrual cycle was January 19. Patient has not taken a test at home because she is afraid it will be positive. She is currently taking oral control. Denies abdominal pain, pelvic cramping, flank pain, dysuria. PFSH Past Medical History Asthma: Yes Diminished Hearing: No ?: Unknown LMP: 01/19/17 : 4 Para: 1 Miscarriage: 3 Past Surgical History Surgical History: No Previous Surgery Social History Alcohol Use: No Tobacco Use: No Substance Use: No Allergies-Medications (Allergen,Severity, Reaction): Coded Allergies: No Known Allergies (Unverified Adverse Reaction, Unknown, 03/05/17) Reported Meds & Prescriptions Reported Meds & Active Scripts Active Tri-Sprintec (Norgestimate-Ethinyl Estradiol) 0.18/0.215/0.25 Mg-35 Mcg Tab 1 Tab PO DAILY Review of Systems Except as stated in HPI: all other systems reviewed are Neg Physical Exam Narrative GENERAL: Well-nourished, well-developed female in no acute distress. Afebrile. Ambulatory. SKIN: Focused skin assessment warm/dry. HEAD: Normocephalic. EYES: No scleral icterus. No injection or drainage. NECK: Supple, trachea midline. No JVD or lymphadenopathy. CARDIOVASCULAR: Regular rate and rhythm without murmurs, gallops, or rubs. RESPIRATORY: Breath sounds equal bilaterally. No accessory muscle use. GASTROINTESTINAL: Abdomen soft, non-tender, nondistended. No CVA tenderness. Data Data Last Documented VS Vital Signs Date Time Temp Pulse Resp B/P (MAP) Pulse Ox O2 Delivery O2 Flow Rate FiO2 03/05/17 10:05 97.9 79 16 124/78 (93) 99 Orders Orders Urinalysis - C+S If Indicated (03/05/17 11:09) Ed Urine Pregnancytest Poc (03/05/17 11:09) Complete Blood Count With Diff (03/05/17 11:09) Comprehensive Metabolic Panel (03/05/17 11:09) Iv Access Insert/Monitor (03/05/17 11:09) Ed Discharge Order (03/05/17 12:08) Labs Laboratory Tests Test 03/05/17 11:25 White Blood Count 8.0 TH/MM3 Red Blood Count 4.52 MIL/MM3 Hemoglobin 13.4 GM/DL Hematocrit 39.1 % Mean Corpuscular Volume 86.6 FL Mean Corpuscular Hemoglobin 29.7 PG Mean Corpuscular Hemoglobin Concent 34.4 % Red Cell Distribution Width 13.3 % Platelet Count 249 TH/MM3 Mean Platelet Volume 9.5 FL Neutrophils (%) (Auto) 54.4 % Lymphocytes (%) (Auto) 32.0 % Monocytes (%) (Auto) 7.2 % Eosinophils (%) (Auto) 5.6 % Basophils (%) (Auto) 0.8 % Neutrophils # (Auto) 4.3 TH/MM3 Lymphocytes # (Auto) 2.6 TH/MM3 Monocytes # (Auto) 0.6 TH/MM3 Eosinophils # (Auto) 0.4 TH/MM3 Basophils # (Auto) 0.1 TH/MM3 CBC Comment DIFF FINAL Differential Comment Urine Color YELLOW Urine Turbidity CLEAR Urine pH 5.5 Urine Specific [place] 1.024 Urine Protein TRACE mg/dL Urine Glucose (UA) NEG mg/dL Urine Ketones NEG mg/dL Urine Occult Blood NEG Urine Nitrite NEG Urine Bilirubin NEG Urine Urobilinogen LESS THAN 2.0 MG/DL Urine Leukocyte Esterase NEG Urine RBC 1 /hpf Urine WBC 2 /hpf Urine Squamous Epithelial Cells 2 /hpf Urine Bacteria RARE /hpf Urine Mucus FEW /lpf Microscopic Urinalysis Comment CULT NOT INDICATED Blood Urea Nitrogen 10 MG/DL Creatinine 0.65 MG/DL Random Glucose 81 MG/DL Total Protein 7.8 GM/DL Albumin 3.8 GM/DL Calcium Level 9.1 MG/DL Alkaline Phosphatase 62 U/L Aspartate Amino Transf (AST/SGOT) 13 U/L Alanine Aminotransferase (ALT/SGPT) 21 U/L Total Bilirubin 1.1 MG/DL Sodium Level 138 MEQ/L Potassium Level 3.8 MEQ/L Chloride Level 106 MEQ/L Carbon Dioxide Level 25.0 MEQ/L Anion Gap 7 MEQ/L Estimat Glomerular Filtration Rate 115 ML/MIN [facility] Medical Decision Making Medical Screen Exam Complete: Yes Emergency Medical Condition: Yes Medical Record Reviewed: Yes Differential Diagnosis , gastroenteritis, UTI Narrative Course 21-year-old A3 female presents to the emergency room for evaluation of nausea, vomiting, and dizziness for the past 3 days. Patient is 2 weeks late for her menstrual cycle but has not taken a test because she is afraid it will be positive. ED urine test is positive. She is 6 weeks by dates. Patient denies any abdominal pain, cramping, vaginal discharge, or bleeding. CBC and CMP are unremarkable. UA shows evidence of acute infection. Patient is asymptomatic. Vital signs stable. She was told to stop taking control, start taking vitamin, and follow-up with her frozen pie maker. Told to return for vaginal bleeding or pelvic cramping. She understands and agrees to plan. Diagnosis Primary Impression: Qualified Codes: Z3A.01 - Less than 8 weeks gestation of Referrals: [employer] Additional Instructions: Rest and drink plenty of fluids. Stop taking control. Start taking vitamins. Follow-up with frozen pie maker. Return to the emergency room for worsening symptoms. Disposition: 01 DISCHARGE HOME Condition: Stable Elida Gant Mar 05, 2017 11:34
[2017-03-05 11:36] LABS: AUTOMATED NEUTROPHIL # 4.3 TH/MM3 (1.8-7.7); BASOPHIL # 0.1 TH/MM3 (0-0.2); BASOPHIL % 0.8 % (0.0-2.0); EOSINOPHIL # 0.4 TH/MM3 (0-0.4); EOSINOPHIL % 5.6 % (0.0-4.0); HEMATOCRIT 39.1 % (35.0-46.0); HEMO FLAGS DIFF FINAL; LYMPHOCYTE # 2.6 TH/MM3 (1.0-4.8); MEAN CELL VOLUME 86.6 FL (80.0-100.0); MEAN CORPUSCULAR HEMOGLOBIN 29.7 PG (27.0-34.0); MEAN CORPUSCULAR HGB CONC 34.4 % (32.0-36.0); MONO % 7.2 % (0.0-8.0); NEUT % 54.4 % (16.0-70.0); PLATELET COUNT 249 TH/MM3 (150-450); RED BLOOD COUNT 4.52 MIL/MM3 (4.00-5.30); RED CELL DISTRIBUTION WIDTH 13.3 % (11.6-17.2)
[2017-03-05 11:38] LABS: BACTERIA, URINE RARE /hpf; BLOOD, URINE NEG (NEG); GLUCOSE,URINE NEG (NEG); KETONE, URINE NEG (NEG); MUCUS URINE FEW /lpf (OCC); NITRITE,URINE NEG (NEG); PH, URINE 5.5 (5.0-8.5); SQUAMOUS EPITHELIAL CELL URINE 2 /hpf (0-5); URINE COLOR YELLOW (YELLW/STRAW)
[2017-03-05 11:39] LABS: COMMENT (UR) CULT NOT INDICATED; CULTURE IF INDICATED CULT NOT INDICATED
[2017-03-05 11:53] LABS: ALT (GPT) 21 U/L (10-53); ANION GAP 7 MEQ/L (5-15); AST (GOT) 13 U/L (15-37); BLOOD UREA NITROGEN 10 MG/DL (7-18); CHLORIDE 106 MEQ/L (98-107); GLOMERULAR FILTRATION RATE 115 ML/MIN (>89); POTASSIUM 3.8 MEQ/L (3.5-5.1); SODIUM (NA) 138 MEQ/L (136-145)
[2017-03-05 11:55] LABS: ALKALINE PHOSPHATASE 62 U/L (45-117); TOTAL BILIRUBIN ADULT 1.1 MG/DL (0.2-1.0)
== END 2017-03-05 12:17 | disposition home or self-care (01) ==
LOC: NEPD 10:03
DX: O21.9 Vomiting of pregnancy, unspecified (principal); R42 Dizziness and giddiness; J45.909 Unspecified asthma, uncomplicated; Z3A.01 Less than 8 weeks gestation of pregnancy; Z79.899 Other long term (current) drug therapy
CPT/HCPCS: 80053; 81001; 84703; 85025; 99283

== ENCOUNTER 2017-03-07 07:32 | Emergency (ER) | payer MEDICAID ==
[~2017-03-07] VITALS: Ht 167.6 cm; Wt 78.0 kg
[2017-03-07 07:33] VITALS: BP 115/62; PULSE 65; RESP 16; TEMP 98.9; O2SAT 100
--- NOTE | 2017-03-07 08:03 | PD ---
HPI Chief Complaint: Abdominal Pain Time Seen by Provider: 08:03 Travel History International Travel<30 days: No Contact w/Intl Traveler<30days: No Traveled to known affect area: No History of Present Illness HPI 21-year-old female came to the emergency room with history of pelvic pain. Patient was in the emergency room 2 days ago with the same complain and was diagnosed to be . Patient was asked to return if the pain continues. Patient denies of any spotting or bleeding. She has not seen an OB yet. Her last menstrual period she states 7 weeks. There was no ultrasound or beta-hCG done last time. Vital signs are stable. Patient is A1. [facility] Past Medical History Narrative Medical List of her past medical, surgical, social and family history is reviewed from the nursing note. Asthma: Yes Diminished Hearing: No ?: LMP: january 19, 2017 : 4 Para: 1 Miscarriage: 3 Past Surgical History Surgical History: No Previous Surgery Social History Alcohol Use: No Tobacco Use: No Substance Use: No Allergies-Medications (Allergen,Severity, Reaction): Coded Allergies: No Known Allergies (Unverified Adverse Reaction, Unknown, 03/05/17) Comments No known drug allergies. Reported Meds & Prescriptions Reported Meds & Active Scripts Active Tri-Sprintec (Norgestimate-Ethinyl Estradiol) 0.18/0.215/0.25 Mg-35 Mcg Tab 1 Tab PO DAILY Narrative Medication List of her home medications reviewed from the nursing note. Review of Systems Except as stated in HPI: all other systems reviewed are Neg Genitourinary: Positive: Pelvic Pain Physical Exam Narrative GENERAL: Awake, alert, no obvious distress SKIN: Focused skin assessment warm/dry. HEAD: Atraumatic. Normocephalic. EYES: Pupils equal and round. No scleral icterus. No injection or drainage. ENT: No nasal bleeding or discharge. Mucous membranes pink and moist. NECK: Trachea midline. No JVD. CARDIOVASCULAR: Regular rate and rhythm. No murmur appreciated. RESPIRATORY: No accessory muscle use. Clear to auscultation. Breath sounds equal bilaterally. GASTROINTESTINAL: Abdomen soft, non-tender, nondistended. Hepatic and splenic margins not palpable. MUSCULOSKELETAL: No obvious deformities. No clubbing. No cyanosis. No edema. NEUROLOGICAL: Awake and alert. No obvious cranial nerve deficits. Motor grossly within normal limits. Normal speech. PSYCHIATRIC: Appropriate mood and affect; insight and judgment normal. Data Data Last Documented VS Orders Orders Ed Poc Ultrasound (03/07/17 ) Beta Hcg (Quant/Titer) (03/07/17 08:32) Ed Discharge Order (03/07/17 10:00) Labs Laboratory Tests Test 03/07/17 08:35 Human Chorionic Gonadotropin, Quant 140 MIU/ML MDM Medical Decision Making Medical Screen Exam Complete: Yes Emergency Medical Condition: Yes Medical Record Reviewed: Yes Differential Diagnosis Threatened miscarriage, ectopic , early Narrative Course 9:58 AM bedside ultrasound done by me did not show any intrauterine gestation. Please refer to my procedure note. I had ordered a beta hCG which has come back to be 140 only. At this point my diagnosis would be early . I will ask her to return in 48 hours to get a repeat beta-hCG. Procedures Procedure Narrative Emergency Department Pelvic ultrasound was performed with patient consent. The curvilinear probe was used in the transverse and sagittal views within the suprapubic region revealing no intrauterine . EKG Prior to Arrival: No Diagnosis Primary Impression: Early stage of Additional Impression: Pelvic pain during Referrals: Primary Care Physician Additional Instructions: Please return to the ER in 48 hours to get a repeat blood work for beta hCG Quant. Continue drinking lots of fluid and take your vitamin pills every day. Med/Other Pt SpecificInfo: No Change to Meds Disposition: 01 DISCHARGE HOME Condition: Stable Julio Cesar Hoffman MD Mar 07, 2017 08:03
[2017-03-07 09:21] LABS: BETA HCG QUANT 140 MIU/ML (0-5)
== END 2017-03-07 10:36 | disposition home or self-care (01) ==
LOC: NEPE 07:32
DX: O26.891 Other specified pregnancy related conditions, first trimester (principal); R10.2 Pelvic and perineal pain; J45.909 Unspecified asthma, uncomplicated; Z3A.01 Less than 8 weeks gestation of pregnancy
CPT/HCPCS: 84702; 99284

== ENCOUNTER 2017-03-07 20:48 | Emergency (ER) | payer MEDICAID ==
[2017-03-07 20:50] VITALS: BP 132/81; PULSE 78; RESP 16; TEMP 99.1; O2SAT 100
[2017-03-07 22:36] LABS: AUTOMATED NEUTROPHIL # 4.9 TH/MM3 (1.8-7.7); BASOPHIL # 0.1 TH/MM3 (0-0.2); BASOPHIL % 0.7 % (0.0-2.0); EOSINOPHIL # 0.5 TH/MM3 (0-0.4); EOSINOPHIL % 5.2 % (0.0-4.0); HEMATOCRIT 37.4 % (35.0-46.0); HEMO FLAGS DIFF FINAL; LYMPH % 32.5 % (9.0-44.0); LYMPHOCYTE # 2.9 TH/MM3 (1.0-4.8); MEAN CELL VOLUME 85.8 FL (80.0-100.0); MEAN CORPUSCULAR HEMOGLOBIN 28.7 PG (27.0-34.0); MEAN CORPUSCULAR HGB CONC 33.5 % (32.0-36.0); MONO % 7.9 % (0.0-8.0); NEUT % 53.7 % (16.0-70.0); PLATELET COUNT 265 TH/MM3 (150-450); RED BLOOD COUNT 4.36 MIL/MM3 (4.00-5.30); RED CELL DISTRIBUTION WIDTH 13.4 % (11.6-17.2)
[2017-03-07 22:40] LABS: BACTERIA, URINE OCC /hpf; BLOOD, URINE NEG (NEG); COMMENT (UR) CULT NOT INDICATED; CULTURE IF INDICATED CULT NOT INDICATED; GLUCOSE,URINE NEG (NEG); KETONE, URINE NEG (NEG); MUCUS URINE FEW /lpf (OCC); NITRITE,URINE NEG (NEG); PH, URINE 6.5 (5.0-8.5); SQUAMOUS EPITHELIAL CELL URINE 2 /hpf (0-5); URINE COLOR YELLOW (YELLW/STRAW)
[2017-03-07 22:53] LABS: BICARBONATE 25.5 MEQ/L (21.0-32.0); MAGNESIUM 1.8 MG/DL (1.5-2.5); POTASSIUM 3.5 MEQ/L (3.5-5.1)
[2017-03-08 00:40] VITALS: BP_SYST 110; BP_SYST 117; BP_DIAS 72; BP_DIAS 77; RESP 18
--- NOTE | 2017-03-08 03:24 | PD ---
HPI Chief Complaint: Syncope/Near-Syncope Time Seen by Provider: 00:20 Travel History International Travel<30 days: No Contact w/Intl Traveler<30days: No Traveled to known affect area: No History of Present Illness HPI Patient is a 21-year-old female who is 2 weeks . Tonight she was lying on the couch she fell off the couch hit her head. She has a lump on her occipital parietal area on the right. She then got up walked down the [place] she does not remember that boyfriend says she was crying and then when she came to she said she couldn't breathe. Symptoms are resolved by the time they arrived in the ER. Initial EKG is normal sinus rhythm. Patient was in the ER earlier today for similar symptoms. She was here a week ago when she had had a similar episode at work and at that time found out that she was . Today in the ER she has the complaint of falling from a couch hitting her head and confusion in the ER exam room she is completely alert and awake in no signs of disorientation no vomiting no LOC PFSH Past Medical History Asthma: Yes Diminished Hearing: No ?: : 4 Para: 1 Miscarriage: 3 Social History Alcohol Use: No Tobacco Use: No Substance Use: No Allergies-Medications (Allergen,Severity, Reaction): Coded Allergies: No Known Allergies (Unverified Adverse Reaction, Unknown, 03/05/17) Reported Meds & Prescriptions Reported Meds & Active Scripts Active Tri-Sprintec (Norgestimate-Ethinyl Estradiol) 0.18/0.215/0.25 Mg-35 Mcg Tab 1 Tab PO DAILY Review of Systems Except as stated in HPI: all other systems reviewed are Neg HENT: Positive: Other (head injury right pareital occiputal ) Cardiovascular: No: Chest Pain or Discomfort Respiratory: No: Cough Gastrointestinal: No: Nausea Skin: No Rash Physical Exam Narrative GENERAL: Nontoxic-appearing SKIN: Warm and dry. HEAD: Small lump on the right occipital parietal area Normocephalic. EYES: Pupils equal and round. No scleral icterus. No injection or drainage. ENT: No nasal bleeding or discharge. Mucous membranes pink and moist. NECK: Trachea midline. No JVD. CARDIOVASCULAR: Regular rate and rhythm. RESPIRATORY: No accessory muscle use. Clear to auscultation. Breath sounds equal bilaterally. GASTROINTESTINAL: Abdomen soft, non-tender, nondistended. Hepatic and splenic margins not palpable. MUSCULOSKELETAL: Lumbar L5 area tenderness no hematoma no bruises seen Extremities without clubbing, cyanosis, or edema. No obvious deformities. NEUROLOGICAL: Awake and alert. No obvious cranial nerve deficits. Motor grossly within normal limits. Five out of 5 muscle strength in the arms and legs. Normal speech. PSYCHIATRIC: Appropriate mood and affect; insight and judgment normal. Data Data Last Documented VS Vital Signs Date Time Temp Pulse Resp B/P (MAP) Pulse Ox O2 Delivery O2 Flow Rate FiO2 03/08/17 00:40 63 18 110/72 (85) 80 18 117/77 (90) 03/07/17 20:50 99.1 100 Room Air Orders Orders Electrocardiogram (03/07/17 21:13) Basic Metabolic Panel (Bmp) (03/07/17 21:13) Complete Blood Count With Diff (03/07/17 21:13) Magnesium (Mg) (03/07/17 21:13) Urinalysis - C+S If Indicated (03/07/17 21:13) Ed Urine Pregnancytest Poc (03/07/17 22:02) Beta Hcg (Quant/Titer) (03/07/17 22:19) Orthostatic Vital Signs (03/08/17 01:05) Ed Discharge Order (03/08/17 03:20) Labs Laboratory Tests Test 03/07/17 22:19 White Blood Count 9.0 TH/MM3 Red Blood Count 4.36 MIL/MM3 Hemoglobin 12.5 GM/DL Hematocrit 37.4 % Mean Corpuscular Volume 85.8 FL Mean Corpuscular Hemoglobin 28.7 PG Mean Corpuscular Hemoglobin Concent 33.5 % Red Cell Distribution Width 13.4 % Platelet Count 265 TH/MM3 Mean Platelet Volume 9.8 FL Neutrophils (%) (Auto) 53.7 % Lymphocytes (%) (Auto) 32.5 % Monocytes (%) (Auto) 7.9 % Eosinophils (%) (Auto) 5.2 % Basophils (%) (Auto) 0.7 % Neutrophils # (Auto) 4.9 TH/MM3 Lymphocytes # (Auto) 2.9 TH/MM3 Monocytes # (Auto) 0.7 TH/MM3 Eosinophils # (Auto) 0.5 TH/MM3 Basophils # (Auto) 0.1 TH/MM3 CBC Comment DIFF FINAL Differential Comment Urine Color YELLOW Urine Turbidity CLEAR Urine pH 6.5 Urine Specific [place] 1.030 Urine Protein TRACE mg/dL Urine Glucose (UA) NEG mg/dL Urine Ketones NEG mg/dL Urine Occult Blood NEG Urine Nitrite NEG Urine Bilirubin NEG Urine Urobilinogen 2.0 MG/DL Urine Leukocyte Esterase NEG Urine RBC 1 /hpf Urine WBC 1 /hpf Urine Squamous Epithelial Cells 2 /hpf Urine Bacteria OCC /hpf Urine Mucus FEW /lpf Microscopic Urinalysis Comment CULT NOT INDICATED Blood Urea Nitrogen 13 MG/DL Creatinine 0.82 MG/DL Random Glucose 84 MG/DL Calcium Level 8.8 MG/DL Magnesium Level 1.8 MG/DL Sodium Level 138 MEQ/L Potassium Level 3.5 MEQ/L Chloride Level 105 MEQ/L Carbon Dioxide Level 25.5 MEQ/L Anion Gap 8 MEQ/L Estimat Glomerular Filtration Rate 88 ML/MIN Human Chorionic Gonadotropin, Quant 186 MIU/ML MDM Medical Decision Making Medical Screen Exam Complete: Yes Emergency Medical Condition: Yes Differential Diagnosis anxiety, panic , head injury concusiion vs IC bleed Narrative Course ekg normal and orthostics are negative and pt is awake alert and pain free on exam , 186 beta HCG increased since last lab this AM Diagnosis Primary Impression: Head injury, closed Qualified Codes: S09.90XA - Unspecified injury of head, initial encounter Patient Instructions: General Instructions, Head Injury (ED) Disposition: 01 DISCHARGE HOME Condition: Gio Ashford MD Mar 08, 2017 03:24
--- NOTE | 2017-03-08 15:44 | EKG ---
Date Performed: 03/07/2017 Time Performed: 22:08:39 PTAGE: 21 years EKG: SINUS BRADYCARDIA BORDERLINE ECG NO PREVIOUS TRACING DOCTOR: Antione Austin Interpretating Date/Time 03/08/2017 15:42:53
== END 2017-03-08 03:32 | disposition home or self-care (01) ==
LOC: NEPC 20:48
DX: S09.90XA Unspecified injury of head, initial encounter (principal); R00.1 Bradycardia, unspecified; J45.909 Unspecified asthma, uncomplicated; W08.XXXA Fall from other furniture, initial encounter; Z34.91 Encounter for supervision of normal pregnancy, unspecified, first trimester
CPT/HCPCS: 80048; 81001; 83735; 84702; 84703; 85025; 93005; 99285

== ENCOUNTER 2017-03-29 14:40 | Emergency (ER) | payer MEDICAID ==
[2017-03-29 14:42] VITALS: BP 120/75; PULSE 60; RESP 18; TEMP 98.4; O2SAT 100
--- NOTE | 2017-03-29 17:20 | PD ---
HPI Chief Complaint: Abdominal Pain Time Seen by Provider: 15:22 Travel History International Travel<30 days: No Contact w/Intl Traveler<30days: No Traveled to known affect area: No History of Present Illness HPI This is a 21-year-old female who presents to the emergency department in early with vaginal bleeding. She is not sure exactly how far along she is. She says she was at work today and at some pain in her upper abdomen and her boss made her cleaning the bathroom and then she noticed something wet and realized that she had some bleeding. She had one episode of bleeding which has since resolved associated with some mild cramping, intermittent, resolved. She denies any fevers or chills. She's had 3 miscarriages and has one child. PFSH Past Medical History Asthma: Yes Diminished Hearing: No Influenza Vaccination: No ?: LMP: 01/19/17 : 5 Para: 1 Miscarriage: 3 Social History Alcohol Use: No Tobacco Use: No Substance Use: No Allergies-Medications (Allergen,Severity, Reaction): Coded Allergies: No Known Allergies (Unverified Adverse Reaction, Unknown, 03/05/17) Reported Meds & Prescriptions Reported Meds & Active Scripts Active Tri-Sprintec (Norgestimate-Ethinyl Estradiol) 0.18/0.215/0.25 Mg-35 Mcg Tab 1 Tab PO DAILY Review of Systems Except as stated in HPI: all other systems reviewed are Neg Physical Exam Narrative GENERAL:Well appearing, no acute distress SKIN: Focused skin assessment warm and dry. HEAD: Atraumatic. Normocephalic. EYES: Pupils equal and round. No injection or drainage. ENT: Moist mucous membranes NECK: Trachea midline. CARDIOVASCULAR: Regular rate and rhythm. No murmur appreciated. RESPIRATORY: Clear to auscultation. Breath sounds equal bilaterally. GASTROINTESTINAL: Abdomen soft, non-tender, nondistended. 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 No cervical motion or adnexal tenderness. Cervix is closed. MUSCULOSKELETAL: No obvious deformities. NEUROLOGICAL: Awake and alert. No obvious cranial nerve deficits. Moving all extremities. PSYCHIATRIC: Appropriate mood and affect; insight and judgment normal. Data Data Last Documented VS Vital Signs Date Time Temp Pulse Resp B/P (MAP) Pulse Ox O2 Delivery O2 Flow Rate FiO2 03/29/17 14:42 98.4 60 18 120/75 (90) 100 Room Air Orders Orders Ed Poc Ultrasound (03/29/17 ) Wet Prep Profile (03/29/17 16:24) Gc And Chlamydia Pcr (03/29/17 16:24) Labs Laboratory Tests Test 03/29/17 16:22 Clue Cells (Wet Prep) NONE SEEN Vaginal Trichomonas (Wet Prep) NONE SEEN Vaginal Yeast (Wet Prep) NONE SEEN MDM Medical Decision Making Medical Screen Exam Complete: Yes Emergency Medical Condition: Yes Differential Diagnosis Ectopic , intrauterine , cervicitis, miscarriage, incomplete miscarriage, completed miscarriage Narrative Course This is a 21-year-old female who presents to the emergency department with vaginal bleeding in the setting of early . An ultrasound demonstrates an intrauterine with a heart rate of 138. Past history has shown that she is Rh+. She has no bleeding on exam she does have some vaginal discharge. Wet prep was negative. Patient will be discharged and follow-up with an outpatient human resources analyst. Diagnosis Primary Impression: Threatened miscarriage Patient Instructions: General Instructions Additional Instructions: You have been diagnosed with a threatened miscarriage. Many women who have vaginal bleeding in early go on to have normal pregnancies. However some women that have vaginal bleeding will have a miscarriage and it is important to followup with your energy consultant. If you develop severe abdominal pain, fever, persistent vomiting or inability to eat, heavy vaginal bleeding using more than one pad an hour, lightheadedness , dizziness, chest pain or shortness of breath return to the emergency department immediately. Followup with your energy consultant as soon as possible. Take Tylenol as needed for pain. Med/Other Pt SpecificInfo: No Change to Meds Disposition: 01 DISCHARGE HOME Condition: Stable Deonna Rodriguez MD Mar 29, 2017 17:20
== END 2017-03-29 17:35 | disposition home or self-care (01) ==
LOC: NEPD 14:40
DX: O20.0 Threatened abortion (principal); J45.909 Unspecified asthma, uncomplicated; Z79.899 Other long term (current) drug therapy; Z34.91 Encounter for supervision of normal pregnancy, unspecified, first trimester
CPT/HCPCS: 87210; 87491; 87591; 99284

== ENCOUNTER 2017-06-11 08:39 | Emergency (ER) | payer MEDICAID ==
[~2017-06-11 08:39] MED LIST changes: +PREN1CAP33 PO; -TRI-TAB PO
[2017-06-11 09:12] VITALS: BP 116/64; PULSE 113; RESP 17; TEMP 99.8; O2SAT 100
--- NOTE | 2017-06-11 09:26 | PD ---
HPI Chief Complaint: Cold / Flu Symptoms Time Seen by Provider: 09:18 Travel History International Travel<30 days: No Contact w/Intl Traveler<30days: No Traveled to known affect area: No History of Present Illness HPI The patient is a 21-year-old female who presents to the emergency department for cough and cold symptoms. The patient states her symptoms started on Sunday with a mild sore throat, she then developed a mostly dry nonproductive cough, then had a few episodes of epistaxis and hemoptysis. The patient then complained of nausea, vomiting, and diarrhea with decreased oral intake. She also complains of diffuse body aches and a fever at home as high as 103. The patient is currently , 4-5 months and is followed by Gila Roman. The patient denies any dysuria, frequency, or urgency. PFSH Past Medical History Asthma: Yes Diminished Hearing: No : 5 Para: 1 Miscarriage: 3 Social History Alcohol Use: No Tobacco Use: No Substance Use: No Allergies-Medications (Allergen,Severity, Reaction): Coded Allergies: No Known Allergies (Unverified Adverse Reaction, Unknown, 06/11/17) Reported Meds & Prescriptions Reported Meds & Active Scripts Active Vitafol Fe+ 90-1-200 & 50 mg ( Vit W/ Fe Polysacch C) 90 Mg Iron-1 Mg- 50 Mg-200 Mg Cap 1 Tab PO DAILY Vitafol Ultra 29-0.6-0.4-200 mg ( Vit W/ Fe Polysacch C) 29 Mg Iron-1 Mg -200 Mg Cap Review of Systems Except as stated in HPI: all other systems reviewed are Neg General / Constitutional: Positive: Fever HENT: Positive: Headaches, Sore Throat, Congestion, Nosebleed, Earache Respiratory: Positive: Cough, Hemoptysis Gastrointestinal: Positive: Nausea, Vomiting, Diarrhea, No: Abdominal Pain Genitourinary: No: Dysuria Musculoskeletal: Positive: Myalgias Physical Exam Narrative GENERAL: Awake, alert, pleasant 21-year-old female who appears her stated age and is in no acute respiratory distress. SKIN: Focused skin assessment warm/dry. HEAD: Atraumatic. Normocephalic. EYES: Pupils equal and round. No scleral icterus. No injection or drainage. ENT: No nasal bleeding or discharge. Oropharyngeal reveals cobblestoning but no exudate. TMs are dull bilateral positive air-fluid levels but no bulging. NECK: Trachea midline. No JVD. CARDIOVASCULAR: Regular, tachycardic with a heart rate of 115. RESPIRATORY: No accessory muscle use. Clear to auscultation. Breath sounds equal bilaterally. GASTROINTESTINAL: Abdomen gravid, nontender. MUSCULOSKELETAL: No obvious deformities. No clubbing. No cyanosis. No edema. NEUROLOGICAL: Awake and alert. No obvious cranial nerve deficits. Motor grossly within normal limits. Normal speech. PSYCHIATRIC: Appropriate mood and affect; insight and judgment normal. Data Data Last Documented VS Vital Signs Date Time Temp Pulse Resp B/P (MAP) Pulse Ox O2 Delivery O2 Flow Rate FiO2 06/11/17 09:44 98 Room Air 06/11/17 09:12 99.8 113 17 116/64 (81) Orders Orders Influenzae A/B Antigen (06/11/17 09:24) Sodium Chlor 0.9% 1000 Ml Inj (Ns 1000 M (06/11/17 09:30) Ondansetron Inj (Zofran Inj) (06/11/17 09:30) MDM Medical Decision Making Medical Screen Exam Complete: Yes Emergency Medical Condition: Yes Medical Record Reviewed: Yes Interpretation(s) Date/Time Source Procedure Growth Status 06/11/17 09:30 Nasal Aspirate Influenza Types A,B Antigen (LAUREN) - Final Positive For Flu B Antigen Complete Differential Diagnosis Differential diagnosis includes influenza, viral syndrome, bronchitis, pneumonia , URI, pharyngitis, otitis media. Narrative Course IV was established and the patient was administered 1 L normal saline and Zofran 4 mg intravenously. Influenza screen was sent to lab. The patient's heart rate came down to 100 with IV fluids. Influenza screen is positive for influenza B. The patient is , we had a discussion regarding Tamiflu category C in , after discussion, as agreed we would start Tamiflu. She is advised to follow-up with her weed eradicator. She will be prescribed Zofran as needed for nausea. She is advised to drink plenty of fluids to stay hydrated and return if symptoms worsen or progress. Diagnosis Primary Impression: Influenza B Patient Instructions: General Instructions Additional Instructions: Medications as directed. Follow-up with her weed eradicator. Please provide the patient a copy of her flu results at discharge. Plenty fluids to stay hydrated. Tylenol every 4 hours as needed for fever. Return if symptoms worsen or progress. Med/Other Pt SpecificInfo: Prescription(s) given Scripts Ondansetron Odt (Zofran Odt) 4 Mg Tab 4 MG SL Q6HR Y for Nausea/Vomiting, #10 TAB 0 Refills Prov: Baljeet Regalado MD 06/11/17 Oseltamivir (Tamiflu) 75 Mg Cap 75 MG PO BID for Mgmt Viral Infection for 5 Days, #10 CAP 0 Refills Prov: Baljeet Regalado MD 06/11/17 Disposition: 01 DISCHARGE HOME Condition: Stable Baljeet Regalado MD Jun 11, 2017 09:26
[2017-06-11] MEDS ORDERED: ONDANSETRON HCL 4 MG/2 ML VIAL IV PUSH ONE (09:30)
[2017-06-11] MEDS ORDERED: SODIUM CHLOR 0.9% 1000 ML INJ 1,000 ML IV ONE (09:30)
[2017-06-11] MEDS ORDERED: ZOFR4TAB3 SL (10:30)
[2017-06-11] MEDS ORDERED: OSEL75 PO (10:30)
== END 2017-06-11 11:00 | disposition home or self-care (01) ==
LOC: NEPD 08:39
DX: J10.89 Influenza due to other identified influenza virus with other manifestations (principal); J02.9 Acute pharyngitis, unspecified; R04.0 Epistaxis; J45.909 Unspecified asthma, uncomplicated
CPT/HCPCS: 87804; 96374; 99283; J2405; J7030

== ENCOUNTER 2017-09-06 15:53 | Emergency (ER) | payer MEDICAID ==
[~2017-09-06 15:53] MED LIST changes: +OSEL75 PO; +ZOFR4TAB3 SL
--- NOTE | 2017-09-06 16:44 | PD ---
HPI Chief Complaint contractions and LOF Date Seen: September 06, 2017 Time Seen: 16:30 Travel History International Travel<30 Days: No Contact w/Intl Traveler<30Days: No History of Present Illness HPI Patient is a 21-year-old female presenting to OB triage with complaints of contractions and mucous discharge that started this morning around 1 AM. She states her contractions were occurring about every 30 minutes. She also reports decreased movement. Denies vaginal bleeding. Denies chest pain shortness of breath lower extremity swelling right upper quadrant pain, dysuria. Endorses headaches, on and off blurry vision, nausea and vomiting 2. Para: 1 : 3 Miscarriage: 2 Allergies-Medications (Allergen,Severity, Reaction): Coded Allergies: No Known Allergies (Unverified Adverse Reaction, Unknown, 06/11/17) Home Meds Active Scripts Ondansetron Odt (Zofran Odt) 4 Mg Tab, 4 MG SL Q6HR Y for Nausea/Vomiting, #10 TAB 0 Refills Prov:Baljeet Regalado MD 06/11/17 Oseltamivir (Tamiflu) 75 Mg Cap, 75 MG PO BID for Mgmt Viral Infection for 5 Days, #10 CAP 0 Refills Prov:Baljeet Regalado MD 06/11/17 Vit W/ Fe Polysacch C (Vitafol Fe+ 90-1-200 & 50 mg) 90 Mg Iron-1 Mg- 50 Mg-200 Mg Cap, 1 TAB PO DAILY, #30 BOTTLE 11 Refills Prov:Veronika Matt 05/07/17 Vit W/ Fe Polysacch C (Vitafol Ultra 29-0.6-0.4-200 mg) 29 Mg Iron-1 Mg -200 Mg Cap Prov:Veronika Matt 05/07/17 Physical Exam Narrative GENERAL: Well-nourished, well-developed patient. SKIN: Warm and dry. HEAD: Normocephalic and atraumatic. EYES: No scleral icterus. No injection or drainage. ENT: No nasal drainage noted. Mucous membranes pink. Airway patent. NECK: Supple, trachea midline. No JVD. CARDIOVASCULAR: Regular rate and rhythm without gallops, or rubs. 1/6 flow murmur, pt reports she has had this murmur in her past pregnancies. RESPIRATORY: Breath sounds equal bilaterally. No accessory muscle use. ABDOMEN/GI: Abdomen soft, non-tender, bowel sounds present, no rebound, no guarding Gravid to 30 weeks size GENITOURINARY: External Genitalia: intact and normal in appearance Membranes: intact Uterine Contractions: scattered FHT's: Category: 1 Baseline: 140 Reactive: yes Variability: mod Decels: none EXTREMITIES: No cyanosis or edema. BACK: Nontender without obvious deformity. No CVA tenderness. NEUROLOGICAL: Awake and alert. Motor and sensory grossly within normal limits. Five out of 5 muscle strength in all muscle groups. Normal speech. Data Data Vital Signs Reviewed: Yes [facility] Medical Record Reviewed: Yes Plan Patient is a 21-year-old female at 30/6 weeks gestation presenting to OB triage with complaints of contractions and mucous discharge that started this morning around 1 AM. IUP at 30/6 weeks gestation 1. VS WNL 2. UA negative 3. Amnisure negative 4. Category 1, NST reactive 5. Encouraged oral hydration 6. pt advised to follow up with OB doctor as schedule for care LIONEL Rey Diagnosis Diagnosis: Primary Impression: 30 weeks gestation of Disposition: DISCHARGE HOME Condition: Stable Patient Instructions: General Instructions, Early Labor Signs (ED), Movement (ED) Bibi Neville MD, R1 September 06, 2017 16:44
== END 2017-09-06 19:59 | disposition home or self-care (01) ==
LOC: HOBED 15:53
DX: O26.893 Other specified pregnancy related conditions, third trimester (principal); Z3A.30 30 weeks gestation of pregnancy
CPT/HCPCS: 84112; 99283

== ENCOUNTER 2017-09-19 22:06 | Emergency (ER) | payer MEDICAID ==
[~2017-09-19] VITALS: Ht 167.6 cm; Wt 73.5 kg
--- NOTE | 2017-09-19 23:49 | PD ---
HPI Chief Complaint lof Date Seen: Sep 19, 2017 Time Seen: 23:43 Travel History International Travel<30 Days: No Contact w/Intl Traveler<30Days: No Known Affected Area: No History of Present Illness HPI pt. is a @ 32 5/7 weeks present w/ c/o lof. pt. states thought she had srom ~0800 this am. pt. states then [place] the [place] of the day prior to present. +FM, no vb, irreg ctxs began ~30 min prior to present. pt. have amniosure which was -, and cervical check that shows closed cervix. Weeks Gestation: 32 Para: 1 : 5 Miscarriage: 3 History Past Medical History Medical History: Denies Significant Hx Obstetric History Obstetric History , x 1, sab x 3 Past Surgical History Surgical History: No Previous Surgery Family History Family History: Negative Social History Alcohol Use: No Tobacco Use: No Substance Abuse: No Allergies-Medications (Allergen,Severity, Reaction): Coded Allergies: No Known Allergies (Unverified Adverse Reaction, Unknown, 09/19/17) Home Meds Active Scripts Vit W/ Fe Polysacch C (Vitafol Ultra 29-0.6-0.4-200 mg) 29 Mg Iron-1 Mg -200 Mg Cap Prov:Veronika Matt 05/07/17 Discontinued Scripts Ondansetron Odt (Zofran Odt) 4 Mg Tab, 4 MG SL Q6HR Y for Nausea/Vomiting, #10 TAB 0 Refills Prov:Baljeet Regalado MD 06/11/17 Oseltamivir (Tamiflu) 75 Mg Cap, 75 MG PO BID for Mgmt Viral Infection for 5 Days, #10 CAP 0 Refills Prov:Baljeet Regalado MD 06/11/17 Vit W/ Fe Polysacch C (Vitafol Fe+ 90-1-200 & 50 mg) 90 Mg Iron-1 Mg- 50 Mg-200 Mg Cap, 1 TAB PO DAILY, #30 BOTTLE 11 Refills Prov:Veronika Matt 05/07/17 Physical Exam Narrative GENERAL: Well-nourished, well-developed patient. SKIN: Warm and dry. HEAD: Normocephalic and atraumatic. EYES: No scleral icterus. No injection or drainage. ENT: No nasal drainage noted. Mucous membranes pink. Airway patent. NECK: Supple, trachea midline. No JVD. CARDIOVASCULAR: Regular rate and rhythm without murmurs, gallops, or rubs. RESPIRATORY: Breath sounds equal bilaterally. No accessory muscle use. ABDOMEN/GI: Abdomen soft, non-tender, bowel sounds present, no rebound, no guarding Gravid GENITOURINARY: External Genitalia: intact and normal in appearance Cervix: posterior Dilatation: closed Effacement: long Station: high Membranes: intact, amniosure - Uterine Contractions: irreg FHT's: Category: 1 Reactive: + Variability: mod EXTREMITIES: No cyanosis or edema. BACK: Nontender without obvious deformity. No CVA tenderness. NEUROLOGICAL: Awake and alert. Motor and sensory grossly within normal limits. Five out of 5 muscle strength in all muscle groups. Normal speech. Data Data Vital Signs Reviewed: Yes Orders Orders Motor Vehicle [employer] Interpreter Clear For Discharge (09/19/17 ) Motor Vehicle Parts Interpreter Clear For Discharge (09/19/17 ) [facility] Medical Record Reviewed: Yes Plan pt. w/o srom and not in labor. condition d/w pt. all ? answered. pt. to be d/ c to home. given precautions for return. f/u as sched. Diagnosis Diagnosis: Primary Impression: No leakage of amniotic fluid into vagina Additional Impression: Uterine contractions Disposition: 01 DISCHARGE HOME Jake Rey Jr., MD Sep 19, 2017 23:49
== END 2017-09-19 23:54 | disposition home or self-care (01) ==
LOC: HOBED 22:06
DX: O26.893 Other specified pregnancy related conditions, third trimester (principal); N85.8 Other specified noninflammatory disorders of uterus; Z3A.32 32 weeks gestation of pregnancy; Z79.899 Other long term (current) drug therapy
CPT/HCPCS: 59025; 84112

== ENCOUNTER 2017-11-12 22:22 | Inpatient (IN) ==
[2017-11-12] MEDS ORDERED: fentaNYL Citrate Inj 100 MCG/2 ML Ampul IV.PUSH PRN ×2 (22:58)
[2017-11-12] MEDS ORDERED: Sodium Chlor 0.9% Inj 500 ML IV.SIG PRN (22:58)
[2017-11-12] MEDS ORDERED: Naloxone Inj 0.4 MG/ML Vial IV.PUSH PRN (22:58)
[2017-11-12] MEDS ORDERED: Oxytocin 30 Units/500ml Premix 30 UNITS/500 ML BAG IV.SIG ONE (22:58)
[2017-11-12] MEDS ORDERED: Sod Chloride 0.9% Inj 1,000 ML IV.CONT PRN (22:58)
[2017-11-12] MEDS ORDERED: Citric Acid/Sodium Citrate Liq 30 ML UDC PO SCH (23:00)
--- NOTE | 2017-11-12 23:10 | P.HPOB ---
History of Present Illness Primary Care Physician: NOT REQUIRED Chief Complaint: Contractions History of Present Illness: 22-year-old female at 40/3 weeks of gestational age presented with contractions. 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 This has been without any complications. Patient is feeling baby move okay patient denies any vaginal bleeding or any gush of fluid. Patient is having contractions and painful. Patient is expecting to breast-feed and bottle feel since she was unable to breast-feed with her last child. Patient had a vaginal delivery at term in the past, without complications. Patient denies any bleeding or coagulation problems. Patient denies any medical problems other than miscarriages. - Inpatient Certification I certify that the inpatient services were ordered in accordance with Medicare regulations governing the order. This includes certification that hospital inpatient services are reasonable and necessary and in the case of services not specified as inpatient-only under 42 CFR 419.22(n), that they are appropriately provided as inpatient services in accordance to with the 2-midnight benchmark under 43 CFR 412.3(e) Estimated Total Length of Stay (Days): 2 Plans for Post Hospital Care: Home Review of Systems Constitutional: Denies fever(s), Denies headache(s) Eyes: Denies blurry vision, Denies change in vision Cardiovascular: Denies chest pain Respiratory: Denies cough, Denies shortness of breath Gastrointestinal: Reports nausea, Reports vomiting, Denies abdominal pain, Denies constipation Genitourinary: Denies abnormal vaginal bleeding Psychiatric: Denies anxiety, Denies depression Hematologic/Lymphatic: Denies easy bleeding, Denies easy bruising PMFSH - History History Provided By: Patient - Medical / Surgical Hx Neg / Unobtainable Medical Problems Denied: Yes Surgical History: No Previous Surgery - Tobacco History Smoking Status: Never smoker - Alcohol History How Often Do You Have a Drink Containing Alcohol: Never - Substance Use History Substance History: No History of Abuse - Travel History History of Recent Travel: No Recent Travel in the [place] Within the Last 8 Weeks: No Recent Travel Out of the Country Within the Last 8 Weeks: No Medications and Allergies Active Medications: Active Medications Citric Acid/Sodium Citrate (Sodium Citrate/Citric Acid Liq) 30 ml PO PIPE 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 CHRIS Stop: 11/16/17 22:59 Fentanyl Citrate (Fentanyl Inj) 50 mcg IV.PUSH Q1H PRN PRN Reason: Pain Scale 3 - 5 Fentanyl Citrate (Fentanyl Inj) 100 mcg IV.PUSH Q1H PRN PRN Reason: PAIN SCALE 6 TO 10 Lactated Ringer's (Lr 1000 Ml Inj) 1,000 mls @ 125 mls/hr IV.CONT .Q8H CHRIS Lactated Ringer's (Lr 1000 Ml Inj) 1,000 mls @ 3,000 mls/hr IV.SIG UNSCH PRN PRN Reason: compromise or epidural Sodium Chloride (Ns Inj) 500 mls @ 1,000 mls/hr IV.SIG UNSCH PRN PRN Reason: SEE LABEL COMMENTS Sodium Chloride (Ns Inj) 1,000 mls @ 100 mls/hr IV.CONT .Q10H PRN PRN Reason: SEE LABEL COMMENTS Oxytocin (Pitocin 30 Units/Ns 500 Ml Premix) 30 units in 500 mls @ 999 mls/hr IV.SIG BOLUS ONE Stop: 11/12/17 23:28 Lidocaine HCl (Xylocaine 1% Inj) 0.1 ml I-DERMAL PRN PRN PRN Reason: For IV start Stop: 11/15/17 22:57 Lidocaine HCl (Xylocaine 1% Inj) 10 ml INFILTRATN PRN PRN PRN Reason: For episiotomy repair Stop: 11/14/17 22:57 Mineral Oil (Muri-Lube Oil) 10 ml TOPICAL PRN PRN PRN Reason: PRN perineal massage Naloxone HCl (Narcan Inj) 0.1 mg IV.PUSH Q2M PRN PRN Reason: for opiate reversal Allergies Allergy/AdvReac Type Severity Reaction Status Date / Time No Known Allergies AdvReac Unknown NONE Uncoded 11/12/17 22:58 Home Medications Medication Instructions Recorded Confirmed Type PNV cmb#[id number]-[id number] fumarate-FA 1 tab PO DAILY 10/18/17 10/18/17 History [] Exam Vital signs: Vital Signs 11/12/17 22:38 11/12/17 22:39 Temperature 99.0 F Pulse Rate 108 H Respiratory Rate 18 Blood Pressure 120/61 Intake & Output 11/12/17 11/12/17 11/13/17 06:59 18:59 06:59 Weight 167 kg Narrative: GENERAL: Well-nourished, well-developed patient. SKIN: Warm and dry. HEAD: Normocephalic and atraumatic. EYES: No scleral icterus. No injection or drainage. ENT: No nasal drainage noted. Mucous membranes pink. Airway patent. NECK: Supple, trachea midline. No JVD. CARDIOVASCULAR: Regular rate and rhythm without murmurs, gallops, or rubs. RESPIRATORY: Breath sounds equal bilaterally. No accessory muscle use. BREASTS: Bilateral exam showed no masses , no retractions, no nipple discharge. ABDOMEN/GI: Abdomen soft, non-tender, bowel sounds present, no rebound, no guarding Gravid to 40 weeks size GENITOURINARY: Cervix: soft, anterior Dilatation: 5 Effacement: 80% Station: 0 Presentation: cephalic Membranes: intact Uterine Contractions: present FHT's: Category: 1 Baseline: 145 Reactive: yes Variability: moderate Decels: absent EXTREMITIES: No cyanosis or edema. BACK: Nontender without obvious deformity. No CVA tenderness. NEUROLOGICAL: Awake and alert. Motor and sensory grossly within normal limits. Five out of 5 muscle strength in all muscle groups. Normal speech. Caprini VTE Risk Assessment Caprini VTE Risk Assessment: No/Low Risk (score <= 1) Caprini Risk Assessment Model: Point Value = 1 Point Value = 2 Point Value = 3 Point Value = 5 Age 41-60 Minor surgery BMI > 25 kg/m2 Swollen legs Varicose veins or History of unexplained or recurrent spontaneous Oral contraceptives or hormone replacement Sepsis (< 1 month) Serious lung disease, including pneumonia (< 1 month) Abnormal pulmonary function Acute myocardial infarction Congestive heart failure (< 1 month) History of inflammatory bowel disease Medical patient at bed rest Age 61-74 Arthroscopic surgery Major open surgery (> 45 min) Laparoscopic surgery (> 45 min) Malignancy Confined to bed (> 72 hours) Immobilizing plaster cast Central venous access Age >= 75 History of VTE Family history of VTE Factor V Leiden Prothrombin [id number] Lupus anticoagulant Anticardiolipin antibodies Elevated serum homocysteine Heparin-induced thrombocytopenia Other congenital or acquired thrombophilia Stroke (< 1 month) Elective arthroplasty Hip, pelvis, or leg fracture Acute spinal cord injury (< 1 month) Prophylaxis Regimen: Total Risk Factor Score Risk Level Prophylaxis Regimen 0-1 Low Early ambulation 2 Moderate Order ONE of the following: *Sequential Compression Device (SCD) *Heparin 5000 units SQ BID 3-4 Higher Order ONE of the following medications: *Heparin 5000 units SQ TID *Enoxaparin/Lovenox 40 mg SQ daily (WT < 150 kg, CrCl > 30 mL/min) *Enoxaparin/Lovenox 30 mg SQ daily (WT < 150 kg, CrCl > 10-29 mL/min) *Enoxaparin/Lovenox 30 mg SQ BID (WT < 150 kg, CrCl > 30 mL/min) AND/OR *Sequential Compression Device (SCD) 5 or more Highest Order ONE of the following medications: *Heparin 5000 units SQ TID (Preferred with Epidurals) *Enoxaparin/Lovenox 40 mg SQ daily (WT < 150 kg, CrCl > 30 mL/min) *Enoxaparin/Lovenox 30 mg SQ daily (WT < 150 kg, CrCl > 10-29 mL/min) *Enoxaparin/Lovenox 30 mg SQ BID (WT < 150 kg, CrCl > 30 mL/min) AND *Sequential Compression Device (SCD) Assessment and Plan - Diagnosis (1) Uterine contractions Status: Acute - Plan 22-year-old female at 40/3 presented to the ED for contractions. 5cm dilated on exam with intact membranes. - Admit to L&D - Manage labor properly - Augment if necessary - Anticipate a vaginal delivery
[2017-11-12 23:23] LABS: Baso # (Auto) 0.1 th/mm3 (0.0-0.2); Baso % (Auto) 0.4 % (0.0-2.0); Eos # (Auto) 0.1 th/mm3 (0.0-0.4); Hematocrit 31.8 % (35.0-46.0); Hemoglobin 10.3 gm/dL (11.6-15.3); Lymph % (Auto) 15.6 % (9.0-44.0); Mean Corpuscular HGB Conc 32.3 % (32.0-36.0); Mean Corpuscular Hemoglobin 24.8 pg (27.0-34.0); Mean Corpuscular Volume 76.8 fL (80.0-100.0); Mean Platelet Volume 9.2 fL (7.0-11.0); Mono # (Auto) 0.9 th/mm3 (0.0-0.9); Mono % (Auto) 7.2 % (0.0-8.0); Neut # (Auto) 9.6 th/mm3 (1.8-7.7); Neut % (Auto) 75.8 % (16.0-70.0); Platelet Count 238 th/mm3 (150-450); Red Blood Count 4.13 mil/mm3 (4.00-5.30); Red Cell Distribution Width 15.9 % (11.6-17.2); White Blood Count 12.7 th/mm3 (4.0-11.0)
[2017-11-12] MEDS ORDERED: fentaNYL 2MCG-Bupiv 0.125% Epi 150 ML EPIDURAL ONE (23:30)
[2017-11-12 23:46] LABS: Amphetamine Urine With Conf Neg (Neg); Benzodiazepine Urine With Conf Neg (Neg)
[2017-11-13] MEDS ORDERED: fentaNYL 2MCG-Bupiv 0.125% Epi 150 ML EPIDURAL PRN (00:53)
[2017-11-13] MEDS ORDERED: fentaNYL Citrate Inj 100 MCG/2 ML Ampul EPIDURAL ONE (00:53)
[2017-11-13 01:48] LABS: Amorphous Sediment,Urine Rare /hpf; Bacteria,Urine Moderate /hpf; Bilirubin,Urine Negative (Negative); Clarity,Urine Hazy (Clear); Color,Urine Yellow (Yellw/Straw); Glucose,Urine (UA) Negative (Negative); Leukocyte Esterase,Urine Small (Negative); Mucus,Urine Few /lpf (Occasional); Nitrite,Urine Negative (Negative); Specific Gravity,Urine 1.014 (1.002-1.035); Squamous Epithelial Cell,Urine 4 /hpf (0-5)
[2017-11-13] MEDS ORDERED: Zolpidem Tartrate 5 MG Tablet PO PRN (03:54)
[2017-11-13] MEDS ORDERED: Benzocaine 20% Top Spray 60 ML Can TOPICAL PRN (03:54)
[2017-11-13] MEDS ORDERED: Naloxone Inj 0.4 MG/ML Vial IV.PUSH PRN (03:54)
[2017-11-13] MEDS ORDERED: Acetaminophen 325 MG Tablet PO PRN (03:54)
[2017-11-13] MEDS ORDERED: Bisacodyl 10 MG Supp RECTAL PRN (03:54)
[2017-11-13] MEDS ORDERED: Witch Hazel 50%/Glyderin 12.5% 40 Pad Jar RECTAL PRN (03:54)
--- NOTE | 2017-11-13 03:58 | P.OBDELI ---
Anesthesia: Epidural Episiotomy: none Vaginal Delivery: Normal Presentation: Occiput anterior Nuchal Cord: None Delayed Cord Clamping (45 sec): Yes Placenta: Spontaneous delivery Laceration: None Estimated blood loss (mL): 200 Infant: Female Infant Delivery Date: 11/13/17 Delivery Time: 03:42 Weight: 3.975 kg score (1 min): 8 score (5 min): 9
[2017-11-13] MEDS ORDERED: Oxytocin 30 Units/500ml Premix 30 UNITS/500 ML BAG IV.CONT SCH (04:00)
[2017-11-13] MEDS: Ibuprofen 400 MG Tablet PO PRN ×2 (10:10→20:19)
[2017-11-13] MEDS ORDERED: Measles/Mumps/Rubella Vaccine Inj 0.5 ML Vial SQ ONE (16:00)
[2017-11-13] MEDS ORDERED: Diphtheria/Tetanus/Pertussis Vaccine Inj 0.5 ML Syringe IM ONE (16:00)
[2017-11-13] MEDS: Senna/Docusate Sodium 8.6/50 MG Tablet PO SCH (20:19)
[2017-11-14] MEDS: Ibuprofen 400 MG Tablet PO PRN (07:17)
[2017-11-14] MEDS: Senna/Docusate Sodium 8.6/50 MG Tablet PO SCH (08:38)
--- NOTE | 2017-11-14 08:46 | P.PNOB ---
Subjective Interval history: Patient is a 22-year-old delivered at 40 weeks and 4 days. Patient is day 1 after . Patient's pain is well-controlled. Patient reports eating and drinking without any nausea or vomiting. Patient reports minimal bleeding. Patient has passed gas but no bowel movements. Patient is walking without lower extremity pain or shortness of breath. Patient reports that her has a scheduled vasectomy. Objective Vital Signs/I&O: Vital Signs 11/13/17 20:00 Temperature 98.1 F Pulse Rate 81 Respiratory Rate 18 Blood Pressure 114/75 Result Diagrams: 11/12/17 23:15 Objective Remarks: GENERAL: Well-nourished, well-developed patient. CARDIOVASCULAR: Regular rate and rhythm without murmurs, gallops, or rubs. RESPIRATORY: Breath sounds equal bilaterally. No accessory muscle use. ABDOMEN/GI: Abdomen soft, non-tender. Fundus: Firm, non-tender at umbilicus. GENITOURINARY: Light to moderate bleeding. EXTREMITIES: No cyanosis or edema, non-tender, without signs of DVT. 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 [facility] Stop: 11/16/17 22:59 Fentanyl Citrate (Fentanyl Inj) 50 mcg IV.PUSH Q1H PRN PRN Reason: Pain Scale 3 - 5 Fentanyl Citrate (Fentanyl Inj) 100 mcg IV.PUSH Q1H PRN PRN Reason: PAIN SCALE 6 TO 10 Lactated Ringer's (Lr 1000 Ml Inj) 1,000 mls @ 125 mls/hr IV.CONT .Q8H [facility] Last Admin: 11/13/17 00:09 Dose: 125 mls/hr Lactated Ringer's (Lr 1000 Ml Inj) 1,000 mls @ 3,000 mls/hr IV.SIG UNSCH PRN PRN Reason: compromise or epidural Last Admin: 11/13/17 00:08 Dose: 3,000 mls/hr Sodium Chloride (Ns Inj) 500 mls @ 1,000 mls/hr IV.SIG UNSCH PRN PRN Reason: SEE LABEL COMMENTS Sodium Chloride (Ns Inj) 1,000 mls @ 100 mls/hr IV.CONT .Q10H PRN PRN Reason: SEE LABEL COMMENTS Fentanyl/Bupivacaine/Sodium Chlor (Fentanyl 2 Mcg-Bupiv 0.125% Epi) 150 mls @ 12 mls/hr EPIDURAL PRN PRN PRN Reason: for Labor Pain Ibuprofen (Motrin) 800 mg PO Q8H PRN PRN Reason: For cramping Last Admin: 11/14/17 07:17 Dose: 800 mg Lactulose (Lactulose Liq) 30 ml PO DAILY PRN PRN Reason: SEVERE CONSITIPATION Lidocaine HCl (Xylocaine 1% Inj) 0.1 ml I-DERMAL PRN PRN PRN Reason: For IV start Stop: 11/15/17 22:57 Lidocaine HCl (Xylocaine 1% Inj) 10 ml INFILTRATN PRN PRN PRN Reason: For episiotomy repair Stop: 11/14/17 22:57 Mineral Oil (Muri-Lube Oil) 10 ml TOPICAL PRN PRN PRN Reason: PRN perineal massage Naloxone HCl (Narcan Inj) 0.1 mg IV.PUSH Q2M PRN PRN Reason: for opiate reversal Naloxone HCl (Narcan Inj) 0.1 mg IV.PUSH Q2M PRN PRN Reason: for opiate reversal Ondansetron HCl (Zofran Odt) 4 mg PO Q6H PRN PRN Reason: NAUSEA OR VOMITING Oxycodone/Acetaminophen (Percocet 5/325 Mg) 1 tab PO Q4H PRN PRN Reason: PAIN SCALE 3 TO 5 Last Admin: 11/13/17 20:20 Dose: 1 tab Oxycodone/Acetaminophen (Percocet 5/325 Mg) 2 tab PO Q4H PRN PRN Reason: PAIN SCALE 6 TO 10 Last Admin: 11/14/17 07:20 Dose: 2 tab Senna/Docusate Sodium (Callie-Colace) 1 tab PO BID [facility]RIS Last Admin: 11/14/17 08:38 Dose: 1 tab Sennosides (Senokot) 17.2 mg PO Q12H PRN PRN Reason: Moderate Constipation Sodium Chloride (Ns Flush) 2 ml IV.FLUSH BID CHRIS Sodium Chloride (Ns Flush) 2 ml IV.FLUSH PRN PRN PRN Reason: FLUSH AFTER USING IV ACCESS Witch Mari/Glycerin (Tucks Pads) 1 applicatio RECTAL QID PRN PRN Reason: HEMORRHOIDS Zolpidem Tartrate (Ambien) 5 mg PO HS PRN PRN Reason: SLEEP Assessment and Plan - Diagnosis (1) Vaginal delivery Code(s): O80 - Encounter for full-term uncomplicated delivery Status: Acute Plan: Patient is a 22-year-old delivered at 40 weeks and 4 days. Patient is day 1 after . Patient was counseled to do 6 weeks of pelvic rest. Patient was counseled to follow up in 6 weeks. Patient requested follow-up and is planning on a vasectomy --AF VSS --Continue routine care --Motrin and Percocet when necessary for pain --Encourage OOB --Pelvic rest for 6 weeks will need follow-up appointment at that time. --Contraception: planning for vasectomy --Anticipate discharge tomorrow
[2017-11-14] MEDS: Pantoprazole Sodium 20 MG DR Tablet PO SCH (14:11)
[2017-11-15] MEDS: Pantoprazole Sodium 20 MG DR Tablet PO SCH (07:59)
[2017-11-15] MEDS: Ibuprofen 400 MG Tablet PO PRN (07:59)
[2017-11-15] MEDS: Senna/Docusate Sodium 8.6/50 MG Tablet PO SCH (08:00)
--- NOTE | 2017-11-15 08:11 | P.PNOB ---
Subjective Interval history: Patient is a 22-year-old delivered at 40 weeks and 4 days. Patient is day 2 after . Patient's pain is well-controlled. Patient reports eating and drinking without any nausea or vomiting. Patient reports minimal bleeding. Patient has passed gas and bowel movements. Patient is walking without lower extremity pain or shortness of breath. Objective Vital Signs/I&O: Vital Signs 11/14/17 22:00 Temperature 98.6 F Pulse Rate 57 L Respiratory Rate 18 Blood Pressure 114/74 Result Diagrams: 11/12/17 23:15 Objective Remarks: GENERAL: Well-nourished, well-developed patient. CARDIOVASCULAR: Regular rate and rhythm without murmurs, gallops, or rubs. RESPIRATORY: Breath sounds equal bilaterally. No accessory muscle use. ABDOMEN/GI: Abdomen soft, non-tender. Fundus: Firm, non-tender at umbilicus. GENITOURINARY: Light to moderate bleeding. EXTREMITIES: No cyanosis or edema, non-tender, without signs of DVT. 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 [facility] Stop: 11/16/17 22:59 Fentanyl Citrate (Fentanyl Inj) 50 mcg IV.PUSH Q1H PRN PRN Reason: Pain Scale 3 - 5 Fentanyl Citrate (Fentanyl Inj) 100 mcg IV.PUSH Q1H PRN PRN Reason: PAIN SCALE 6 TO 10 Lactated Ringer's (Lr 1000 Ml Inj) 1,000 mls @ 125 mls/hr IV.CONT .Q8H [facility] Last Admin: 11/13/17 00:09 Dose: 125 mls/hr Lactated Ringer's (Lr 1000 Ml Inj) 1,000 mls @ 3,000 mls/hr IV.SIG UNSCH PRN PRN Reason: compromise or epidural Last Admin: 11/13/17 00:08 Dose: 3,000 mls/hr Sodium Chloride (Ns Inj) 500 mls @ 1,000 mls/hr IV.SIG UNSCH PRN PRN Reason: SEE LABEL COMMENTS Sodium Chloride (Ns Inj) 1,000 mls @ 100 mls/hr IV.CONT .Q10H PRN PRN Reason: SEE LABEL COMMENTS Fentanyl/Bupivacaine/Sodium Chlor (Fentanyl 2 Mcg-Bupiv 0.125% Epi) 150 mls @ 12 mls/hr EPIDURAL PRN PRN PRN Reason: for Labor Pain Ibuprofen (Motrin) 800 mg PO Q8H PRN PRN Reason: For cramping Last Admin: 11/15/17 07:59 Dose: 800 mg Lactulose (Lactulose Liq) 30 ml PO DAILY PRN PRN Reason: SEVERE CONSITIPATION Lidocaine HCl (Xylocaine 1% Inj) 0.1 ml I-DERMAL PRN PRN PRN Reason: For IV start Stop: 11/15/17 22:57 Mineral Oil (Muri-Lube Oil) 10 ml TOPICAL PRN PRN PRN Reason: PRN perineal massage Naloxone HCl (Narcan Inj) 0.1 mg IV.PUSH Q2M PRN PRN Reason: for opiate reversal Naloxone HCl (Narcan Inj) 0.1 mg IV.PUSH Q2M PRN PRN Reason: for opiate reversal Ondansetron HCl (Zofran Odt) 4 mg PO Q6H PRN PRN Reason: NAUSEA OR VOMITING Oxycodone/Acetaminophen (Percocet 5/325 Mg) 1 tab PO Q4H PRN PRN Reason: PAIN SCALE 3 TO 5 Last Admin: 11/13/17 20:20 Dose: 1 tab Oxycodone/Acetaminophen (Percocet 5/325 Mg) 2 tab PO Q4H PRN PRN Reason: PAIN SCALE 6 TO 10 Last Admin: 11/14/17 07:20 Dose: 2 tab Pantoprazole Sodium (Protonix) 20 mg PO DAILY [facility] Last Admin: 11/15/17 07:59 Dose: 20 mg Senna/Docusate Sodium (Callie-Colace) 1 tab PO BID [facility] Last Admin: 11/15/17 08:00 Dose: 1 tab Sennosides (Senokot) 17.2 mg PO Q12H PRN PRN Reason: Moderate Constipation Sodium Chloride (Ns Flush) 2 ml IV.FLUSH BID CHRIS Sodium Chloride (Ns Flush) 2 ml IV.FLUSH PRN PRN PRN Reason: FLUSH AFTER USING IV ACCESS Witch Mari/Glycerin (Tucks Pads) 1 applicatio RECTAL QID PRN PRN Reason: HEMORRHOIDS Zolpidem Tartrate (Ambien) 5 mg PO HS PRN PRN Reason: SLEEP Assessment and Plan - Diagnosis (1) Vaginal delivery Code(s): O80 - Encounter for full-term uncomplicated delivery Status: Acute Plan: Patient is a 22-year-old delivered at 40 weeks and 4 days. Patient is day 2 after . Patient was counseled to do 6 weeks of pelvic rest. Patient was counseled to follow up in 6 weeks. Patient requested follow-up and is planning on a vasectomy --AF VSS --Continue routine care --Motrin and Percocet when necessary for pain --Encourage OOB --Pelvic rest for 6 weeks will need follow-up appointment at that time. --Contraception: planning for vasectomy --Anticipate discharge today
[2017-11-15 09:37] VITALS: BP 118/71; PULSE 67; RESP 16; TEMP 97.8
== END 2017-11-15 13:55 | disposition home or self-care (01) ==
LOC: HOBED 22:22 → H2E 22:47 → H1EA 11-13 05:35
PROVIDERS: ADMIT Obstetrics & Gynecology Maternal & Fetal Medicine; ATTEND Obstetrics & Gynecology Maternal & Fetal Medicine